=== PATIENT | male | born 1970 | race Caucasian/White ===

== ENCOUNTER 2020-08-11 14:38 | Outpatient (REF) | payer OTHER, SELFPAY ==
--- NOTE | 2020-08-11 15:06 | XR_ITS ---
EXAMINATION: XR CHEST 2 VIEWS CLINICAL INFORMATION: Fatigue and weight loss. COMPARISON: None. TECHNIQUE: Frontal and lateral views of the chest were obtained. FINDINGS: The heart, great vessels, pulmonary vasculature and mediastinum are normal. The lungs show no focal infiltrate, effusion or pneumothorax. There is mild hyperinflation. There is mild biapical pleural thickening. There is no acute osseous abnormality. XR/XR chest 2V IMPRESSION: No active cardiopulmonary disease. There is mild hyperinflation.
[2020-08-11 15:13] LABS: MANUAL DIFF FLAG NO
[2020-08-11 15:16] LABS: Basophils Percent Auto 0.4 % (0-2); Eosinophils Absolute Auto 0.1 X10*3/uL (0.0-0.4); Eosinophils Percent Auto 1.2 % (0-4); Hematocrit 45.3 % (42-52); Hemoglobin 15.4 g/dl (14.0-18.0); Imm Gran Abs Auto 0.02 X10*3/uL (0.00-0.03); Imm Gran Pct Auto 0.3 % (0.0-0.4); Lymphocytes Absolute Auto 1.5 X10*3/uL (1.2-4.9); Lymphocytes Percent Auto 22.6 % (20-40); Mean Corpuscular Hemoglobin 32.2 pg (27.0-33.0); Mean Corpuscular Volume 94.6 fL (80-98); Mean Platelet Volume 8.6 fL (9.4-12.4); Monocytes Absolute Auto 0.8 X10*3/uL (0.1-1.2); Monocytes Percent Auto 11.3 % (2-11); Neutrophils Absolute Auto 4.4 X10*3/uL (2.0-8.3); Neutrophils Percent Auto 64.2 % (45-73); Platelet Count 306 X10*3/uL (160-400); Red Blood Count 4.79 X10*6/uL (4.60-5.80); Red Cell Distribution Width 12.5 % (11.0-16.0); White Blood Count 6.8 X10*3/uL (4.8-10.8)
[2020-08-11 15:40] LABS: Alanine Aminotransferase 20 U/L (0-40); Albumin Level 4.4 g/dL (3.5-5.0); Alkaline Phosphatase 63 U/L (39-117); Anion Gap 13 (12-20); Aspartate Amino Transferase 14 U/L (5-37); Bilirubin Total 0.5 mg/dL (0.0-1.0); Blood Urea Nitrogen 11 mg/dL (9-16); C Reactive Protein 0.04 mg/dL (< or = 0.50); Calcium 9.1 mg/dL (8.4-10.2); Carbon Dioxide 27 mmol/L (22-29); Chloride 103 mmol/L (96-108); Estimated Glomerular Filt Rate > 60; Glucose Random 77 mg/dL (60-115); Potassium 5.1 mmol/l (3.3-5.1); Sodium 138 mmol/L (135-145); Total Protein 6.6 g/dL (6.5-8.0)
[2020-08-11 16:01] LABS: Thyroid Stimulating Hormone 1.69 mIU/mL (0.32-4.0)
[2020-08-11 16:51] LABS: Folate 15.8 ng/mL (> or = 4.0); Vitamin B12 480 pg/mL (200-900)
== END 2020-08-11 14:39 | disposition home or self-care (01) ==
LOC: HO.LAB 14:38
PROVIDERS: PCP Internal Medicine; Visit Provider Internal Medicine
DX: R53.83 Other fatigue (principal); F41.9 Anxiety disorder, unspecified; R63.4 Abnormal weight loss
CPT/HCPCS: 36415; 71046; 80053; 82607; 82746; 84439; 84443; 85025; 86140; 86481

== ENCOUNTER 2021-02-21 12:36 | Outpatient (REF) | payer SELFPAY ==
[2021-02-21 13:54] LABS: MANUAL DIFF FLAG NO
[2021-02-21 14:08] LABS: Basophils Percent Auto 0.3 % (0-2); Eosinophils Absolute Auto 0.1 X10*3/uL (0.0-0.4); Eosinophils Percent Auto 1.4 % (0-4); Hematocrit 43.2 % (42-52); Hemoglobin 14.5 g/dl (14.0-18.0); Imm Gran Abs Auto 0.02 X10*3/uL (0.00-0.03); Imm Gran Pct Auto 0.3 % (0.0-0.4); Lymphocytes Absolute Auto 1.8 X10*3/uL (1.2-4.9); Lymphocytes Percent Auto 25.5 % (20-40); Mean Corpuscular HGB Conc 33.6 g/dl (31.0-36.0); Mean Corpuscular Hemoglobin 31.3 pg (27.0-33.0); Mean Corpuscular Volume 93.3 fL (80-98); Mean Platelet Volume 8.9 fL (9.4-12.4); Monocytes Absolute Auto 0.8 X10*3/uL (0.1-1.2); Neutrophils Absolute Auto 4.3 X10*3/uL (2.0-8.3); Neutrophils Percent Auto 61.5 % (45-73); Platelet Count 348 X10*3/uL (160-400); Red Blood Count 4.63 X10*6/uL (4.60-5.80); Red Cell Distribution Width 12.7 % (11.0-16.0)
[2021-02-21 14:27] LABS: Alanine Aminotransferase 38 U/L (0-40); Albumin Level 4.6 g/dL (3.5-5.0); Alkaline Phosphatase 93 U/L (39-117); Anion Gap 14 (12-20); Aspartate Amino Transferase 27 U/L (5-37); Blood Urea Nitrogen 12 mg/dL (9-16); Calcium 9.5 mg/dL (8.4-10.2); Carbon Dioxide 23 mmol/L (22-29); Chloride 105 mmol/L (96-108); Cholesterol 157 mg/dL; Estimated Glomerular Filt Rate > 60; Glucose Fasting 102 mg/dL (60-99); HDL Cholesterol 73 mg/dL; LDL Cholesterol Calculated 75 mg/dl; Potassium 4.2 mmol/L (3.3-5.1); Sodium 138 mmol/L (135-145); Total Protein 6.9 g/dL (6.5-8.0); Triglycerides 47 mg/dL
[2021-02-21 14:50] LABS: Prostate Specific Antigen Scr 0.45 ng/mL (<0.05-4.0)
[2021-02-22 05:12] LABS: Lyme Abs Screen <0.90 index
== END 2021-02-21 12:37 | disposition home or self-care (01) ==
LOC: HO.10HDL 12:36
PROVIDERS: Visit Provider Internal Medicine
DX: Z00.00 Encounter for general adult medical examination without abnormal findings (principal); Z12.5 Encounter for screening for malignant neoplasm of prostate; Z20.818 Contact with and (suspected) exposure to other bacterial communicable diseases
CPT/HCPCS: 36415; 80053; 80061; 84153; 85025; 86617; 86618

== ENCOUNTER 2023-04-11 15:09 | Inpatient (IN) | payer BC, SELFPAY ==
--- NOTE | ~2023-04-11 | XR_ITS ---
EXAMINATION: XR TIBIA AND FIBULA, LEFT CLINICAL INFORMATION: Foreign body in the leg. COMPARISON: None available. TECHNIQUE: AP and lateral views of the left tibia and fibula were obtained. FINDINGS: No radiopaque foreign body. The bones and soft tissues are normal. No fracture. No osseous lesions. XR/XR tibia fibula LT 2V IMPRESSION: Normal left tibia and fibula.
[2023-04-11 15:38] VITALS: BP 154/80; PULSE 77; RESP 18; TEMP 36.7; O2SAT 98; BMI 23.4
--- NOTE | 2023-04-11 15:42 | ED.GENADULT ---
HPI - General Adult General Chief complaint: General Medical Stated complaint: Abscess on L leg Time Seen by Provider: 04/11/23 20:39 Source: patient Mode of arrival: ambulatory Limitations: no limitations History of Present Illness HPI narrative: 52-year-old male presents with redness, swelling, puncture wound to left lower extremity, he reports that about a week ago he got a large sliver/piece of wood into his left lower extremity causing a puncture wound, he reports most of the piece avoid is out however he still feels as though there is a piece of wood inside. He has been having pain, swelling, and yllow discharge from puncture site. Patient reports he took azithromycin for this infection about 3 days ago, despite antibiotics as been getting worse. Reports he saw his PCP who advised him to come into the emergency department for further evaluation treatment possible hospital admission. Patient denies numbness, tingling, fevers, chills, chest pain, shortness of breath, headache, vision changes, dizziness and weakness Related Data Allergies Allergy/AdvReac Type Severity Reaction Status Date / Time No Known Allergies Allergy Verified 04/11/23 15:47 Review of Systems Review of Systems: Constitutional : No Weight loss, No Fever, No Chills, No Fatigue, No Malaise ENT/Mouth : No sore throat, No Rhinorrhea Eyes: No Eye Pain, No Swelling, No Redness Cardiovascular : No Chest Pain, No SOB, No Dyspnea on Exertion, No Orthopnea, No Edema, No Palpitations Respiratory : No Cough, No Sputum, No Wheezing Gastrointestinal : No Nausea, No Vomiting, No Diarrhea, No Constipation, No abdominal Pain, No Hematochezia, No Melena Genitourinary : No Dysuria, No Urinary Frequency, No Hematuria, Musculoskeletal : No joint pain, No Myalgias, No Joint Swelling Skin : No Skin Lesions, + rash Neuro : No Weakness, No Numbness, No Dizziness, No Headache Psych : No Anxiety/Panic, No Depression All other systems reviewed and are negative Yes all other systems are reviewed and are negative [facility] Past Medical History Attestation statement: The following information was validated with the patient. Source: old records reviewed and nursing notes reviewed Social History Social History Advance Directives: No Advance Directives Information Provided: Yes Physical Exam ED Vital Signs: Vital Signs - 24 hr 04/11/23 15:38 04/11/23 20:47 Temperature 98.1 F 98.6 F Pulse Rate 77 58 Respiratory Rate 18 18 Blood Pressure 154/80 H 152/96 H Pulse Oximetry 98 100 Oxygen Delivery Method Room Air Room Air BMI result Body Mass Index 23.4 Vital signs stable Appearance: Alert.? Oriented X3.? No acute distress.? Head: Normocephalic, atraumatic, no step-offs or deformities Eyes: Pupils equal, round and reactive to light.? CVS: Normal heart rate and rhythm.? Pulses normal.? Respiratory: No respiratory distress.? Breath sounds normal.? Abdomen: Soft and nontender.? Skin: Skin warm and dry.? Normal skin color.? Normal skin turgor.? Extremities: No lower extremity edema.? No calf ttp. 5/5 strength to bilateral upper and lower extremities + cellulitis to LLE w/ small puncture wound and surrounding induration ( images below) 2+ DP, AT,PT equal and b/l. No foot drop Neuro: Oriented X 3.? No motor deficit.? No sensory deficit. CN 2-12 intact Course Course Course Narrative: RME performed by Sarai Rodas PA-C. Patient is a 52 year old assigned male at presenting to the emergency department with left lower leg cellulitis secondary from a splinter. Patient was on PO antibiotics however, the infection has gotten worse. Believes there to be remaining splinter fragments. Labs ordered. Spoke with the orthopedic provider care connector who stated that orthopedics does not need to get involved as it does not primarily involved the left ankle joint. Patient placed back in the waiting room pending room availability and results. Reevaluation(s) Reevaluation #1: CBC appears to be within normal limits. Chemistry unremarkable no acute findings. CRP elevated markedly likely secondary to acute infection. I do not suspect osteomyelitis. X-ray unremarkable. At this time patient to be admitted to the hospitalist team for cellulitis, failed p.o. antibiotics, will likely require evaluation by the surgical team for possible washout. Time: 22:29 Medical Decision Making Medical Decision Making [facility] Narrative: [id number] 52-year-old male presents with left lower extremity cellulitis for the past 4-5 days worsening, was on a Z-Jun 3 days ago. Physical exam with left lower extremity cellulitis. Images and physical exam portion of sharp. Concerns for cellulitis question lymphangitis spread also concerned for developing abscess. Unlikely osteomyelitis, necrotizing infection, SJS, TEN . Unlikely arterial or venous occlusion no signs of septic joint. Plan- labs, cultures, lactic. Imaging Differential Diagnosis Differential Diagnoses: The differential diagnosis associated with the presentation includes Concerns for cellulitis question lymphangitis spread also concerned for developing abscess. Unlikely osteomyelitis, necrotizing infection, SJS, TEN . Unlikely arterial or venous occlusion no signs of septic joint. . Admission/Observation Consideration of admission/observation: Escalation of care including admission/observation considered Patient will likely be hospital admission already feels p.o. antibiotic therapy Lab Data MDM Lab Attestation statement: I reviewed the patient's lab results. 04/11/23 16:04 04/11/23 16:04 Labs: Lab Results 04/11/23 04/11/23 04/11/23 Range/Units 16:04 16:04 16:04 WBC 7.9 (4.8-10.8) X10*3/uL RBC 4.63 (4.60-5.80) X10*6/uL Hgb 14.6 (14.0-18.0) g/dl Hct 43.1 (42.0-52.0) % MCV 93.1 (80.0-98.0) fL MCH 31.5 (27.0-33.0) pg MCHC 33.9 (31.0-36.0) g/dl RDW 12.5 (11.0-16.0) % Plt Count 314 (160-400) X10*3/uL MPV 8.7 L (9.4-12.4) fL Immature Gran % (Auto) 0.3 (0.0-0.4) % Neut % (Auto) 70.8 (45-73) % Lymph % (Auto) 18.7 L (20-40) % [place] % (Auto) 9.0 (2-11) % Eos % (Auto) 0.9 (0-4) % Baso % (Auto) 0.3 (0-2) % Lymph # (Auto) 1.5 (1.2-4.9) X10*3/uL [place] # (Auto) 0.7 (0.1-1.2) X10*3/uL Eos # (Auto) 0.1 (0.0-0.4) X10*3/uL Baso # (Auto) 0.0 (0.0-0.2) X10*3/uL Abs Immat Gran (auto) 0.02 (0.00-0.03) X10*3/uL Absolute Neuts (auto) 5.6 (2.0-8.3) x10*3/uL Absolute Nucleated RBC 0.000 (0.0-0.012) X10*3/uL Nucleated RBC % (auto) 0.0 (0.0-0.2) /100WBC ESR 17 H (0-15) MM/HR Sodium 140 (135-145) mmol/L Potassium 4.1 (3.3-5.1) mmol/L Chloride 102 (96-108) mmol/L Carbon Dioxide 25 (22-29) mmol/L Anion Gap TNP BUN 10 (9-16) mg/dL Creatinine 0.74 (0.5-1.4) mg/dL Estim Creat Clear Calc 122.9 Estimated GFR > 60 Random Glucose 82 (60-115) mg/dL Lactic Acid (0.5-2.0) mmol/L Calcium 9.7 (8.4-10.2) mg/dL Magnesium 2.2 (1.6-2.6) mg/dL Total Bilirubin 1.0 (0.0-1.0) mg/dL AST 29 (5-37) U/L ALT 42 H (0-40) U/L Alkaline Phosphatase 63 (39-117) U/L C-Reactive Protein 5.55 H (< or = 0.50) mg/dL Total Protein 7.6 (6.5-8.0) g/dL Albumin 4.7 (3.5-5.0) g/dL 04/11/23 Range/Units 16:04 WBC (4.8-10.8) X10*3/uL RBC (4.60-5.80) X10*6/uL Hgb (14.0-18.0) g/dl Hct (42.0-52.0) % MCV (80.0-98.0) fL MCH (27.0-33.0) pg MCHC (31.0-36.0) g/dl RDW (11.0-16.0) % Plt Count (160-400) X10*3/uL MPV (9.4-12.4) fL Immature Gran % (Auto) (0.0-0.4) % Neut % (Auto) (45-73) % Lymph % (Auto) (20-40) % [place] % (Auto) (2-11) % Eos % (Auto) (0-4) % Baso % (Auto) (0-2) % Lymph # (Auto) (1.2-4.9) X10*3/uL [place] # (Auto) (0.1-1.2) X10*3/uL Eos # (Auto) (0.0-0.4) X10*3/uL Baso # (Auto) (0.0-0.2) X10*3/uL Abs Immat Gran (auto) (0.00-0.03) X10*3/uL Absolute Neuts (auto) (2.0-8.3) x10*3/uL Absolute Nucleated RBC (0.0-0.012) X10*3/uL Nucleated RBC % (auto) (0.0-0.2) /100WBC ESR (0-15) MM/HR Sodium (135-145) mmol/L Potassium (3.3-5.1) mmol/L Chloride (96-108) mmol/L Carbon Dioxide (22-29) mmol/L Anion Gap BUN (9-16) mg/dL Creatinine (0.5-1.4) mg/dL Estim Creat Clear Calc Estimated GFR Random Glucose (60-115) mg/dL Lactic Acid 1.6 (0.5-2.0) mmol/L Calcium (8.4-10.2) mg/dL Magnesium (1.6-2.6) mg/dL Total Bilirubin (0.0-1.0) mg/dL AST (5-37) U/L ALT (0-40) U/L Alkaline Phosphatase (39-117) U/L C-Reactive Protein (< or = 0.50) mg/dL Total Protein (6.5-8.0) g/dL Albumin (3.5-5.0) g/dL Independent Interpretation I performed an independent interpretation of an: Plain X-Ray Core Measures AMI core measures followed: Yes Measure exclusions: not indicated Critical Care Time Critical Care Time Critical Care Time: No Discharge Plan Discharge Clinical Impression: Cellulitis, Retained foreign body, Puncture wound Patient Disposition: Admitted As Inpatient
[2023-04-11 16:09] LABS: MANUAL DIFF FLAG NO
[2023-04-11 16:12] LABS: Basophils Percent Auto 0.3 % (0-2); Eosinophils Absolute Auto 0.1 X10*3/uL (0.0-0.4); Eosinophils Percent Auto 0.9 % (0-4); Hematocrit 43.1 % (42.0-52.0); Hemoglobin 14.6 g/dl (14.0-18.0); Imm Gran Abs Auto 0.02 X10*3/uL (0.00-0.03); Imm Gran Pct Auto 0.3 % (0.0-0.4); Lymphocytes Absolute Auto 1.5 X10*3/uL (1.2-4.9); Lymphocytes Percent Auto 18.7 % (20-40); Mean Corpuscular HGB Conc 33.9 g/dl (31.0-36.0); Mean Corpuscular Hemoglobin 31.5 pg (27.0-33.0); Mean Corpuscular Volume 93.1 fL (80.0-98.0); Mean Platelet Volume 8.7 fL (9.4-12.4); Monocytes Absolute Auto 0.7 X10*3/uL (0.1-1.2); Neutrophils Absolute Auto 5.6 x10*3/uL (2.0-8.3); Neutrophils Percent Auto 70.8 % (45-73); Platelet Count 314 X10*3/uL (160-400); Red Blood Count 4.63 X10*6/uL (4.60-5.80); Red Cell Distribution Width 12.5 % (11.0-16.0); White Blood Count 7.9 X10*3/uL (4.8-10.8)
[2023-04-11 16:29] LABS: Lactic Acid 1.6 mmol/L (0.5-2.0)
[2023-04-11 16:49] LABS: Erythrocyte Sedimentation Rate 17 MM/HR (0-15)
[2023-04-11 17:44] LABS: Alanine Aminotransferase 42 U/L (0-40); Albumin Level 4.7 g/dL (3.5-5.0); Alkaline Phosphatase 63 U/L (39-117); Aspartate Amino Transferase 29 U/L (5-37); Blood Urea Nitrogen 10 mg/dL (9-16); C Reactive Protein 5.55 mg/dL (< or = 0.50); Calcium 9.7 mg/dL (8.4-10.2); Chloride 102 mmol/L (96-108); Creatinine Clr Calc Pharmacy 122.9; Estimated Glomerular Filt Rate > 60; Glucose Random 82 mg/dL (60-115); Magnesium 2.2 mg/dL (1.6-2.6); Potassium 4.1 mmol/L (3.3-5.1); Sodium 140 mmol/L (135-145); Total Protein 7.6 g/dL (6.5-8.0)
--- NOTE | 2023-04-11 20:39 | PC.NURSE ---
puncture wound to inner LLE, sustained friday. was able to remove wood fragments from site but wound now draining serosanguinous fluid/erythema/edema. presents for treatment of infection.
[2023-04-11 20:47] VITALS: BP 152/96; PULSE 58; RESP 18; TEMP 37; O2SAT 100
[2023-04-11 21:54] LABS: Carbon Dioxide 25 mmol/L (22-29)
--- NOTE | 2023-04-11 22:34 | PM.IMHP ---
History of Present Illness Date of Service: 04/11/23 Chief Complaint: Extremity redness, warmth This is a 52-year-old male with no pertinent past medical history and not on prescription medications who presents to the emergency evaluation of left lower extremity swelling, tenderness, warmth and redness. Patient states that about 5 days prior to presentation, he got a large piece of wood into his left lower extremity causing a puncture wound. Since then his leg has been swollen, red and warm. He has had pain over the left lower extremity due to the same. Patient tried Z-Jun at home without any relief. No fever, chills, nausea, vomiting, chest discomfort, palpitations, shortness of breath, abdominal pain, changes in urinary or bowel habits. Patient saw his PCP sent him to the ER for inpatient admission and IV antibiotics. Does endorse purulent serosanguineous drainage from the puncture wound Review of Systems Constitutional: Constitutional: Reports no additional constitutional complaints Cardiovascular: Cardiovascular: Reports no additional cardiovascular complaints Respiratory: Respiratory: Reports no additional respiratory complaints Gastrointestinal: Gastrointestinal: Reports no additional gastrointestinal complaints Genitourinary: Genitourinary: Reports no additional male genitourinary complaints [facility] Pertinent family history: No family history of early CAD Social History Advance Directives: No Advance Directives Information Provided: Yes Meds Allergies Allergy/AdvReac Type Severity Reaction Status Date / Time No Known Allergies Allergy Verified 04/11/23 15:47 Physical Exam Vital Signs and Narrative: Vital Signs: Last Vital Signs Temp 98.6 F 04/11/23 20:47 Pulse 58 04/11/23 20:47 Resp 18 04/11/23 20:47 BP 152/96 H 04/11/23 20:47 Pulse Ox 100 04/11/23 20:47 O2 Del Method Room Air 04/11/23 20:47 BMI result Body Mass Index 23.4 Middle-aged male lying in bed in no distress Neck supple, no JVD Regular rate and rhythm, S1-S2 heard Regular breath sounds bilaterally, no wheezing or crackles appreciated Abdomen soft nontender, no guarding, no rigidity Patient is awake, alert and oriented to self, place, time and person ; no focal motor deficit Musculoskeletal: Left lower extremity with erythema, warmth and tenderness ; puncture wound seen with serosanguineous drainage, Psych: Normal mood No pedal edema Results Labs 04/11/23 16:04 04/11/23 16:04 Labs: Laboratory Results - last 24 hr 04/11/23 04/11/23 04/11/23 16:04 16:04 16:04 MCV 93.1 MCH 31.5 MCHC 33.9 RDW 12.5 Plt Count 314 MPV 8.7 L Immature Gran % (Auto) 0.3 Neut % (Auto) 70.8 Lymph % (Auto) 18.7 L [place] % (Auto) 9.0 Eos % (Auto) 0.9 Baso % (Auto) 0.3 Lymph # (Auto) 1.5 [place] # (Auto) 0.7 Eos # (Auto) 0.1 Baso # (Auto) 0.0 Abs Immat Gran (auto) 0.02 Absolute Neuts (auto) 5.6 Absolute Nucleated RBC 0.000 Nucleated RBC % (auto) 0.0 ESR 17 H Anion Gap TNP Estim Creat Clear Calc 122.9 Estimated GFR > 60 Random Glucose 82 Lactic Acid Calcium 9.7 Magnesium 2.2 Total Bilirubin 1.0 AST 29 ALT 42 H Alkaline Phosphatase 63 C-Reactive Protein 5.55 H Total Protein 7.6 Albumin 4.7 04/11/23 16:04 MCV MCH MCHC RDW Plt Count MPV Immature Gran % (Auto) Neut % (Auto) Lymph % (Auto) [place] % (Auto) Eos % (Auto) Baso % (Auto) Lymph # (Auto) [place] # (Auto) Eos # (Auto) Baso # (Auto) Abs Immat Gran (auto) Absolute Neuts (auto) Absolute Nucleated RBC Nucleated RBC % (auto) ESR Anion Gap Estim Creat Clear Calc Estimated GFR Random Glucose Lactic Acid 1.6 Calcium Magnesium Total Bilirubin AST ALT Alkaline Phosphatase C-Reactive Protein Total Protein Albumin Imaging Radiologist's Impressions: Impressions Tibia/Fibula X-Ray 04/11/23 22:14 IMPRESSION: Normal left tibia and fibula. Assessment and Plan (1) Cellulitis: Status: Acute Plan This is a 52-year-old male with no pertinent past medical history and not on prescription medications who presents to the emergency evaluation of left lower extremity swelling, tenderness, warmth and redness. #. Left lower extremity purulent cellulitis: Due to trauma. Failed p.o. outpatient antibiotics. Will admit patient with IV antibiotics. Monitor for improvement DVT prophylaxis: Lovenox Full code Regular diet Admit as inpatient and will require two night minimum hospital stay for IV antibiotics Time Spent With Patient Time: Total time managing care of this patient today ____ minutes. Quality Stroke Does the patient have a stroke diagnosis?: No VTE Prior VTE?: No VTE Risk Level:: Medical - moderate - high VTE Device Contraindication: Treatment Not Indicated VTE Drug Contraindication: N/A - Med Ordered
[2023-04-11] MEDS: Piperacillin Sodium/Tazobactam 3.375 GM in 0.9 % Sodium Chloride 50 ML IV (22:54)
[2023-04-11] MEDS: vancomycin/NS 2,000 MG/500 ML PLAST..BAG 250 MG IV (23:47)
[2023-04-12 00:20] VITALS: BP 146/77; PULSE 72; RESP 18; TEMP 36.8; O2SAT 98
[2023-04-12] MEDS: Acetaminophen 325 MG TABLET 650 MG PO ×3 (00:28→17:18)
[2023-04-12] MEDS: Melatonin 3 MG TABLET 6 MG PO ×2 (00:28→23:00)
--- NOTE | 2023-04-12 00:48 | PC.NURSE ---
Pt arrived on ED OF AT 0000. Has IV in right hand with vanco running at 250 mL/hr. Pt left leg swollen and at puncture site it's warm and hard. Pt stated pain when standing and was given prn Tylenol 650mg PO for 4/10 pain and Melatonin 6 mg PO. Pt was squeezing punctured area, stated that it feels like there's something still there. Yellow discharge was noticed coming from punctured site. Pt is resting in bed, will continue to monitor.
[2023-04-12 04:57] LABS: MANUAL DIFF FLAG NO
[2023-04-12 04:58] LABS: Basophils Percent Auto 0.4 % (0-2); Eosinophils Absolute Auto 0.2 X10*3/uL (0.0-0.4); Eosinophils Percent Auto 3.3 % (0-4); Hematocrit 40.2 % (42.0-52.0); Hemoglobin 13.5 g/dl (14.0-18.0); Imm Gran Abs Auto 0.01 X10*3/uL (0.00-0.03); Imm Gran Pct Auto 0.2 % (0.0-0.4); Lymphocytes Absolute Auto 1.6 X10*3/uL (1.2-4.9); Lymphocytes Percent Auto 27.1 % (20-40); Mean Corpuscular HGB Conc 33.6 g/dl (31.0-36.0); Mean Corpuscular Hemoglobin 30.9 pg (27.0-33.0); Mean Platelet Volume 8.6 fL (9.4-12.4); Monocytes Absolute Auto 0.8 X10*3/uL (0.1-1.2); Monocytes Percent Auto 13.1 % (2-11); Neutrophils Absolute Auto 3.2 x10*3/uL (2.0-8.3); Neutrophils Percent Auto 55.9 % (45-73); Platelet Count 261 X10*3/uL (160-400); Red Blood Count 4.37 X10*6/uL (4.60-5.80); Red Cell Distribution Width 12.4 % (11.0-16.0); White Blood Count 5.7 X10*3/uL (4.8-10.8)
[2023-04-12 05:13] LABS: Anion Gap 11 (12-20); Blood Urea Nitrogen 13 mg/dL (9-16); Carbon Dioxide 23 mmol/L (22-29); Chloride 108 mmol/L (96-108); Creatinine Clr Calc Pharmacy 124.6; Estimated Glomerular Filt Rate > 60; Glucose Random 110 mg/dL (60-115); Potassium 3.9 mmol/L (3.3-5.1); Sodium 138 mmol/L (135-145)
[2023-04-12] MEDS: 0.9 % Sodium Chloride Flush 3 ML SYRINGE IVFLUSH ×3 (07:13→19:50)
[2023-04-12 07:25] VITALS: BP 127/74; PULSE 60; RESP 18; TEMP 36.7; O2SAT 97
--- NOTE | 2023-04-12 08:01 | PHA.PROG ---
Admission Date/Time: April 11, 2023 22:32 Indication: Skin Weight in k.204 kg Adjusted body weight in Kg: [place] body weight in Kg: Obesity Dosing Indication % IBW: Serum Creatinine - Last 168 Hours 04/11/23 04/12/23 16:04 04:40 Creatinine 0.74 0.73 Estimated CrCl and GFR - Last 168 Hours 04/11/23 04/12/23 16:04 04:40 Estim Creat Clear Calc 122.9 124.6 Estimated GFR > 60 > 60 Vancomycin Loading Dose: 2000mg x 1 Current Vancomycin Dosing Regimen: 1000mg Q12H Vancomycin Monitoring using AUC goal of 400 - 600 range with trough as surrogate marker: 428mg/L Date and Time for next Vancomycin Level to be drawn: 04/13/23 @0900 Pharmacist Comments on Vancomycin Plan: predicted trough of 12.6mg/L Vancomycin dosing will take advantage of medineering as a clinical decision support tool that uses Bayesian modeling to calculate individual patient's pharmacokinetic parameters and forecast the patient's drug concentration time course with the target goal AUC 24 range of 400 - 600 mg/L/hr.
--- NOTE | 2023-04-12 08:45 | PHA.MEDREC ---
Pharmacy Consult ? Medication Reconciliation Pharmacy has completed the medication reconciliation. spoke with patient. He reports taking ibuprofen and tylenol before coming here but does not use those regularly.
[2023-04-12] MEDS: vancomycin HCL 1,000 MG in 0.9 % Sodium Chloride 250 ML 270 MG IV ×2 (11:09→22:47)
[2023-04-12 15:10] VITALS: BP 136/71; PULSE 68; RESP 18; TEMP 36.6; O2SAT 98
--- NOTE | 2023-04-12 15:12 | P.PNIM_ITS ---
Subjective Subjective Date of Service: 04/12/23 Physical Exam Vital Signs: Vital Signs: Last Vital Signs Temp 98.1 F 04/12/23 07:25 Pulse 60 04/12/23 07:25 Resp 18 04/12/23 07:25 BP 127/74 04/12/23 07:25 Pulse Ox 97 04/12/23 07:25 O2 Del Method Room Air 04/12/23 07:25 BMI result Body Mass Index 23.4 Objective Data Active Medications Acetaminophen (Acetaminophen 325 Mg Tablet) 650 mg PO Q6H PRN PRN Reason: Pain, Mild (Pain Scale 1-3) Last Admin: 04/12/23 11:16 Dose: 650 mg Documented By: ANNIE Enoxaparin Sodium (Enoxaparin Sodium 40 Mg/0.4 Ml Syringe) 40 mg SUBCUT Q24H [facility] Last Admin: 04/12/23 07:06 Dose: Not Given Documented By: ANNIE Non-Admin Reason: Off Unit ED Vancomycin HCl 1,000 mg/ (Sodium Chloride) 270 mls @ 270 mls/hr IV Q12H [facility] Last Infusion: 04/12/23 12:52 Dose: 0 mls/hr Documented By: ANNIE Melatonin (Melatonin 3 Mg Tablet) 6 mg PO BEDTIME PRN PRN Reason: Insomnia Last Admin: 04/12/23 00:28 Dose: 6 mg Documented By: MARIYA Ondansetron HCl (Ondansetron Hcl 4 Mg/2 Ml Vial) 4 mg IVPUSH Q8H PRN PRN Reason: Nausea and Vomiting Pharmacy Consult (Consult Rx Vancomycin Dosing) 1 each MISCELLANE DAILY PRN PRN Reason: Consult order Sodium Chloride (0.9 % Sodium Chloride Flush 3 Ml Syringe) 3 ml IVFLUSH QSHIFT [facility] Last Admin: 04/12/23 07:13 Dose: 3 ml Documented By: ANNIE Labs 04/12/23 04:40 04/12/23 04:40 Labs: Laboratory Results - last 24 hr 04/11/23 04/11/23 04/11/23 16:04 16:04 16:04 MCV 93.1 MCH 31.5 MCHC 33.9 RDW 12.5 Plt Count 314 MPV 8.7 L Immature Gran % (Auto) 0.3 Neut % (Auto) 70.8 Lymph % (Auto) 18.7 L [place] % (Auto) 9.0 Eos % (Auto) 0.9 Baso % (Auto) 0.3 Lymph # (Auto) 1.5 [place] # (Auto) 0.7 Eos # (Auto) 0.1 Baso # (Auto) 0.0 Abs Immat Gran (auto) 0.02 Absolute Neuts (auto) 5.6 Absolute Nucleated RBC 0.000 Nucleated RBC % (auto) 0.0 ESR 17 H Anion Gap TNP Estim Creat Clear Calc 122.9 Estimated GFR > 60 Random Glucose 82 Lactic Acid Calcium 9.7 Magnesium 2.2 Total Bilirubin 1.0 AST 29 ALT 42 H Alkaline Phosphatase 63 C-Reactive Protein 5.55 H Total Protein 7.6 Albumin 4.7 04/11/23 04/12/23 04/12/23 16:04 04:40 04:40 MCV 92.0 MCH 30.9 MCHC 33.6 RDW 12.4 Plt Count 261 MPV 8.6 L Immature Gran % (Auto) 0.2 Neut % (Auto) 55.9 Lymph % (Auto) 27.1 [place] % (Auto) 13.1 H Eos % (Auto) 3.3 Baso % (Auto) 0.4 Lymph # (Auto) 1.6 [place] # (Auto) 0.8 Eos # (Auto) 0.2 Baso # (Auto) 0.0 Abs Immat Gran (auto) 0.01 Absolute Neuts (auto) 3.2 Absolute Nucleated RBC 0.000 Nucleated RBC % (auto) 0.0 ESR Anion Gap 11 L Estim Creat Clear Calc 124.6 Estimated GFR > 60 Random Glucose 110 Lactic Acid 1.6 Calcium 9.0 D Magnesium Total Bilirubin AST ALT Alkaline Phosphatase C-Reactive Protein Total Protein Albumin Assessment and Plan (1) Cellulitis: Status: Acute Plan 52-year-old male with no pertinent past medical history and not on prescription medications who presents to the emergency evaluation of left lower extremity swelling, tenderness, warmth and redness. Left lower extremity purulent cellulitis Due to trauma.? Failed p.o. outpatient antibiotics.? IV antibiotics, vanco DVT prophylaxis:? Lovenox Full code Admit as inpatient and will require two night minimum hospital stay for IV antibiotics Time Spent With Patient Time: Total time managing care of this patient today ____ minutes. Quality Stroke Does the patient have a stroke diagnosis?: No VTE Prior VTE?: No VTE Risk Level:: Medical - moderate - high VTE Device Contraindication: Treatment Not Indicated VTE Drug Contraindication: N/A - Med Ordered
--- NOTE | 2023-04-12 15:55 | MHC.CM.PN ---
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
--- NOTE | 2023-04-12 16:27 | P.DS_ITS ---
DS: Providers Provider Date of Service: 04/12/23 Date of admission: 04/11/23 22:32 Primary care physician: Ricci Everett MD Consults: 04/12/23 16:14 Consult to General Surgery Routine Consulting Provider: [facility] [place] General Surgeons Reason for consultation: left calf puncture wound Has provider been notified: No DS: Diagnosis Discharge Diagnosis (1) Cellulitis: Status: Acute DS: Summary Hospital Course Hospital Course: 52-year-old man admit for a left lower extremity puncture wound. He had tried o utpatient oral antibiotics but failed. Admitted for IV antibiotics with good success. He was also seen and examined by general surgeon, x-ray of affected area did not show any retained matter or abscess. s/p I&D by general surgeon. He will be home with 6 more days of Augmentin and doxycycline. Keep wound area clean and dry and he should follow up with general surgery. Time Spent with Patient Time attestation: Total time managing care of this patient today ____ minutes. Discharge coordination time: Greater than 30 minutes Quality: Safe Use of Opioids Does Pt have an Active Cancer Diagnosis on the Problem List?: No Quality: Stroke Does the patient have a stroke diagnosis?: No Physical Exam Vital Signs: Vital Signs: Last Vital Signs Temp 97.9 F 04/12/23 15:10 Pulse 68 04/12/23 15:10 Resp 18 04/12/23 15:10 BP 136/71 04/12/23 15:10 Pulse Ox 98 04/12/23 15:10 O2 Del Method Room Air 04/12/23 15:10 BMI result Body Mass Index 23.4 Appearing in no acute distress head is normocephalic atraumatic eyes pupils are PERRLA sclera is anicteric mouth throat mucous membranes are intact and moist neck is supple no lymphadenopathy, no JVD noted lung sounds are clear to auscultation heart regular rate rhythm, clear S1, S2 positive bowel sounds, abdomen is soft, nontender neuro patient is alert x3, no focal deficits Left LE wound DS: Data Data Completed and Pending Labs on day of discharge: Laboratory Results - last 24 hr 04/11/23 04/11/23 04/11/23 16:04 16:04 16:04 WBC RBC Hgb Hct MCV MCH MCHC RDW Plt Count MPV Immature Gran % (Auto) Neut % (Auto) Lymph % (Auto) [place] % (Auto) Eos % (Auto) Baso % (Auto) Lymph # (Auto) [place] # (Auto) Eos # (Auto) Baso # (Auto) Abs Immat Gran (auto) Absolute Neuts (auto) Absolute Nucleated RBC Nucleated RBC % (auto) ESR 17 H Sodium 140 Potassium 4.1 Chloride 102 Carbon Dioxide 25 Anion Gap TNP BUN 10 Creatinine 0.74 Estim Creat Clear Calc 122.9 Estimated GFR > 60 Random Glucose 82 Lactic Acid 1.6 Calcium 9.7 Magnesium 2.2 Total Bilirubin 1.0 AST 29 ALT 42 H Alkaline Phosphatase 63 C-Reactive Protein 5.55 H Total Protein 7.6 Albumin 4.7 04/12/23 04/12/23 04:40 04:40 WBC 5.7 RBC 4.37 L Hgb 13.5 L Hct 40.2 L MCV 92.0 MCH 30.9 MCHC 33.6 RDW 12.4 Plt Count 261 MPV 8.6 L Immature Gran % (Auto) 0.2 Neut % (Auto) 55.9 Lymph % (Auto) 27.1 Beaufort % (Auto) 13.1 H Eos % (Auto) 3.3 Baso % (Auto) 0.4 Lymph # (Auto) 1.6 [place] # (Auto) 0.8 Eos # (Auto) 0.2 Baso # (Auto) 0.0 Abs Immat Gran (auto) 0.01 Absolute Neuts (auto) 3.2 Absolute Nucleated RBC 0.000 Nucleated RBC % (auto) 0.0 ESR Sodium 138 Potassium 3.9 Chloride 108 Carbon Dioxide 23 Anion Gap 11 L BUN 13 Creatinine 0.73 Estim Creat Clear Calc 124.6 Estimated GFR > 60 Random Glucose 110 Lactic Acid Calcium 9.0 D Magnesium Total Bilirubin AST ALT Alkaline Phosphatase C-Reactive Protein Total Protein Albumin Discharge Plan Discharge Anticipated Discharge Date/Time: 04/13/23 13:59 Patient Disposition: Home, Self-Care Discharge Diagnosis: Cellulitis Referrals: Ricci Everett MD [Primary Care Provider] - 1 Week Rafael Laird MD [Physician] - 1 Week Discharge Medications: New amoxicillin-pot clavulanate 875-125 mg tablet 1 tab PO BID Qty: 12 0RF doxycycline hyclate 100 mg tablet 100 mg PO BID Qty: 12 0RF Discharge Orders: Discharge Order (Routine); Ordered 04/13/23 Ordered By: Nicolasa Mario Diet: Advance to usual diet Activity on Discharge: As tolerated Stand Alone Forms: Patient Portal Discharge page Care Plan Goals: Keep wound area clean and dry Health Concerns: Cellulitis Plan of Treatment: Follow-up with primary care provider as needed Follow up with general surgeon in one week Take all medications as prescribed Assessment: See discharge summary
[2023-04-12 20:00] VITALS: BP 130/62; PULSE 65; RESP 18; TEMP 36.4; O2SAT 98
[2023-04-12] MEDS: Enoxaparin Sodium 40 MG/0.4 ML SYRINGE SUBCUT (22:58)
[2023-04-13 03:16] VITALS: BP 125/93; PULSE 66; RESP 18; TEMP 36.4; O2SAT 99
[2023-04-13 06:40] LABS: Creatinine Clr Calc Pharmacy 133.8; Estimated Glomerular Filt Rate > 60
[2023-04-13] MEDS: Acetaminophen 325 MG TABLET 650 MG PO ×2 (07:29→15:34)
[2023-04-13] MEDS: 0.9 % Sodium Chloride Flush 3 ML SYRINGE IVFLUSH (07:29)
[2023-04-13 08:00] VITALS: BP 142/78; PULSE 60; RESP 17; TEMP 36.5; O2SAT 97
[2023-04-13 08:52] LABS: Vancomycin Trough 5.7 mcg/mL (10.0-20.0)
--- NOTE | 2023-04-13 09:04 | HE.PHANOTE ---
RE: vanco Trough on 04/13 came back low at 5.7mg/L; increased dose to 1000mg Q8H with predicted trough of 11.4mg/L, AUC of 434mg/L. Next level to be drawn after 3 doses 04/14 @0900
[2023-04-13] MEDS: vancomycin HCL 1,000 MG in 0.9 % Sodium Chloride 250 ML 270 MG IV (11:05)
--- NOTE | 2023-04-13 14:38 | PM.CNGS ---
History of Present Illness Consult details Consult date: 04/13/23 Narrative: Patient is status post wood sliver involving left mid calf approximately week half ago. He attempted to remove this splinter and thinks that there may be residual splinter in the puncture site. Consult is for evaluation for possible wound exploration. Chart was reviewed patient evaluated [facility] Social History Social History service: No Meds Allergies Allergy/AdvReac Type Severity Reaction Status Date / Time No Known Allergies Allergy Verified 04/11/23 15:47 Active Medications: Current Medications Acetaminophen (Acetaminophen 325 Mg Tablet) 650 mg PO Q6H PRN PRN Reason: Pain, Mild (Pain Scale 1-3) Last Admin: 04/13/23 07:29 Dose: 650 mg Enoxaparin Sodium (Enoxaparin Sodium 40 Mg/0.4 Ml Syringe) 40 mg SUBCUT Q24H [facility] Last Admin: 04/12/23 22:58 Dose: 40 mg Vancomycin HCl 1,000 mg/ (Sodium Chloride) 270 mls @ 270 mls/hr IV Q8H [facility] Last Infusion: 04/13/23 12:10 Dose: Infused Melatonin (Melatonin 3 Mg Tablet) 6 mg PO BEDTIME PRN PRN Reason: Insomnia Last Admin: 04/12/23 23:00 Dose: 6 mg Ondansetron HCl (Ondansetron Hcl 4 Mg/2 Ml Vial) 4 mg IVPUSH Q8H PRN PRN Reason: Nausea and Vomiting Pharmacy Consult (Consult Rx Vancomycin Dosing) 1 each MISCELLANE DAILY PRN PRN Reason: Consult order Sodium Chloride (0.9 % Sodium Chloride Flush 3 Ml Syringe) 3 ml IVFLUSH QSHIFT [facility] Last Admin: 04/13/23 07:29 Dose: 3 ml Physical Exam Vital Signs: Vital Signs: Last Vital Signs Temp 97.7 F 04/13/23 08:00 Pulse 60 04/13/23 08:00 Resp 17 04/13/23 08:00 BP 142/78 H 04/13/23 08:00 Pulse Ox 97 04/13/23 08:00 O2 Del Method Room Air 04/13/23 08:00 BMI result Body Mass Index 23.4 Extrem: Other: Patient has approximately 2 cm left mid calf medial aspect puncture site with some surrounding cellulitis and with pressure some purulent drainage. Results Labs 04/12/23 04:40 04/13/23 06:00 Labs: Abnormal lab results 04/13/23 Range/Units 08:24 Vancomycin Trough 5.7 L (10.0-20.0) mcg/mL BMP 04/13/23 06:00 Creatinine 0.68 All other labs normal. Assessment and Plan (1) Cellulitis: Status: Acute (2) Puncture wound: Status: Acute Plan I discussed with the patient consideration for wound exploration at the bedside. This will be to drain the abscess and evaluate for possible retained foreign body. He agrees to this. Risks, benefits, alternatives of incision and drainage of left mid calf abscess reviewed the patient and included but not limited to bleeding, infection, recurrence, numbness, pain, scarring the patient was to proceed. Patient underwent 1% lidocaine and Betadine prep and uneventful incision and drainage of abscess. Pocket of pus was drained. Cultures were obtained. Exploration of the wound demonstrated no gross evidence of any retained foreign body/sliver. Packing was placed, dressing applied. Patient tolerated procedure well. A/P patient will follow-up with me in clinic for local wound care. He will be given a script for hospitalist for antibiotics and analgesics. Time Spent With Patient Time: Total time managing care of this patient today ____ minutes. Procedures Date of Service Date of Service: 04/13/23
[2023-04-13] MEDS: Lidocaine HCl 1 % 20 ML VIAL SUBCUT (15:25)
--- NOTE | 2023-04-13 16:28 | MHC.CM.PN ---
PT WILL DC HOME TODAY WITH NO SERVICES VIA SELF TRANSPORT
== END 2023-04-13 15:58 | disposition home or self-care (01) | DRG 383 ==
LOC: HO.ED 22:31 → HO.EDOVER 22:38 → HO.S3 04-12 05:42
PROVIDERS: Physician Assistant Medical; Admitting Provider Student in an Organized Health Care Education/Training Program; Emergency Provider Internal Medicine; PCP Internal Medicine; Visit Provider Nurse Practitioner Acute Care
DX: L02.416 Cutaneous abscess of left lower limb (principal); L03.116 Cellulitis of left lower limb
CPT/HCPCS: 36415; 73590; 80048; 80053; 80202; 82565; 83605; 83735; 85025; 85652; 86140; 87040; 87070; 87205; 99285; J1650; J2543; J3370

== ENCOUNTER → 2023-04-14 14:11 | Outpatient (BNVA) | payer BC, SELFPAY | PROVIDERS: PCP Internal Medicine; Visit Provider Surgery ==

== ENCOUNTER → 2023-04-15 14:05 | Outpatient (BNVA) | payer BC, SELFPAY | PROVIDERS: PCP Internal Medicine; Visit Provider Surgery ==

== ENCOUNTER → 2023-04-23 13:52 | Outpatient (BNVA) | payer BC, SELFPAY | PROVIDERS: PCP Internal Medicine; Visit Provider Surgery ==

== ENCOUNTER 2024-03-02 15:24 | Outpatient (REF) | payer BC, SELFPAY ==
--- NOTE | ~2024-03-02 | XR_ITS ---
EXAMINATION: XR CHEST CLINICAL INFORMATION: Cough COMPARISON: 08/11/2020 TECHNIQUE: 2 views of the chest were obtained. FINDINGS: The lungs are well expanded. 1.8 x 1.3 cm nodule is seen in the left lower lobe. No focal consolidation. Mild biapical pleural thickening. No pleural effusion No significant abnormality is noted involving the heart, mediastinum, bony thorax or soft tissues. XR/XR chest 2V IMPRESSION: 1. No pneumonia. 2. 1.8 cm nodule in the left lower lobe. Chest CT is recommended for further evaluation.
== END 2024-03-02 15:25 | disposition home or self-care (01) ==
LOC: HO.XRAY 15:24
PROVIDERS: PCP Internal Medicine; Visit Provider Internal Medicine
DX: R05.9 Cough, unspecified (principal)
CPT/HCPCS: 71046

== ENCOUNTER 2024-03-06 10:29 | Outpatient (REF) | payer BC, SELFPAY ==
[2024-03-06 10:41] LABS: MANUAL DIFF FLAG NO
[2024-03-06 10:57] LABS: Basophils Percent Auto 0.2 % (0-2); Eosinophils Absolute Auto 0.1 X10*3/uL (0.0-0.4); Eosinophils Percent Auto 1.1 % (0-4); Hematocrit 47.3 % (42.0-52.0); Hemoglobin 16.2 g/dl (14.0-18.0); Imm Gran Abs Auto 0.03 X10*3/uL (0.00-0.03); Imm Gran Pct Auto 0.3 % (0.0-0.4); Lymphocytes Absolute Auto 2.6 X10*3/uL (1.2-4.9); Lymphocytes Percent Auto 29.2 % (20-40); Mean Corpuscular HGB Conc 34.2 g/dl (31.0-36.0); Mean Corpuscular Volume 93.5 fL (80.0-98.0); Mean Platelet Volume 8.5 fL (9.4-12.4); Monocytes Absolute Auto 1.1 X10*3/uL (0.1-1.2); Monocytes Percent Auto 12.7 % (2-11); Neutrophils Absolute Auto 5.1 x10*3/uL (2.0-8.3); Neutrophils Percent Auto 56.5 % (45-73); Platelet Count 328 X10*3/uL (160-400); Red Blood Count 5.06 X10*6/uL (4.60-5.80); Red Cell Distribution Width 12.6 % (11.0-16.0)
[2024-03-06 11:45] LABS: Alanine Aminotransferase 41 U/L (0-40); Albumin Level 4.8 g/dL (3.5-5.0); Alkaline Phosphatase 67 U/L (39-117); Anion Gap 13 (12-20); Aspartate Amino Transferase 21 U/L (5-37); Bilirubin Total 0.5 mg/dL (0.0-1.0); Calcium 9.7 mg/dL (8.4-10.2); Carbon Dioxide 27 mmol/L (22-29); Chloride 103 mmol/L (96-108); Cholesterol 186 mg/dL (<200); Estimated Glomerular Filt Rate > 60; Glucose Fasting 98 mg/dL (60-99); HDL Cholesterol 73 mg/dL (>40); LDL Cholesterol Calculated 97 mg/dL (<100); Potassium 4.1 mmol/L (3.3-5.1); Sodium 139 mmol/L (135-145); Total Protein 7.6 g/dL (6.5-8.0); Triglycerides 84 mg/dL (<150)
[2024-03-06 11:58] LABS: Prostate Specific Antigen 0.57 ng/mL (<0.05-4.0)
[2024-03-06 12:01] LABS: Blood Urea Nitrogen 14 mg/dL (9-16)
[2024-03-09 06:39] LABS: Lyme Abs Screen <0.90 index
== END 2024-03-06 10:30 | disposition home or self-care (01) ==
LOC: HO.LAB 10:29
PROVIDERS: PCP Internal Medicine; Visit Provider Internal Medicine
DX: T14.8XXA Other injury of unspecified body region, initial encounter (principal); E78.00 Pure hypercholesterolemia, unspecified; Z12.5 Encounter for screening for malignant neoplasm of prostate; W57.XXXA Bitten or stung by nonvenomous insect and other nonvenomous arthropods, initial encounter
CPT/HCPCS: 36415; 80053; 80061; 84153; 85025; 86617; 86618

== ENCOUNTER 2024-04-08 09:33 | Outpatient (REF) | payer BC, SELFPAY | END 2024-04-08 09:34 | disposition home or self-care (01) | LOC: HO.SH 09:33 | PROVIDERS: Visit Provider Internal Medicine | DX: Z01.118 Encounter for examination of ears and hearing with other abnormal findings (principal); H90.71 Mixed conductive and sensorineural hearing loss, unilateral, right ear, with unrestricted hearing on the contralateral side | CPT/HCPCS: 92557; 92567 ==

== ENCOUNTER 2025-08-23 13:36 | Outpatient (AMB) | payer BC, SELFPAY ==
--- OUTSIDE RECORDS SUMMARY | 2024-04-27 08:00 | XMS_ITS ---
Author Organization Jeramy Palafox III, MD Address [address] [place] [address] Care Team Providers Care Telecommunications Repairer Name Role Phone Ricci Everett MD Primary Care Provider Dr. Jeramy Falcon III Unavailable [phone] Allergies Allergen (clinical drug ingredient) Drug/Non Drug Allergy documented on EMR Reaction Allergy Type Onset Date Status No Known Drug Allergy Unknown Drug Allergy Active REASON FOR VISIT 1.5 cm left lower lobe pulmonary nodule Medications Medication SIG (Take, Route, Frequency, Duration) Notes Start Date End Date Status Albuterol Sulfate HFA 108 (90 Base) MCG/ACT TAKE 2 PUFF(S) BY MOUTH FOUR TIMES A DAY NEEDED Inhalation for 30 Days Active Social History Tobacco Use: Social History Observation Description Date Details (start date - stop date) Never Smoker NA - NA Sex Assigned At : Social History Observation Description Sex Assigned At Male Tobacco Use/Smoking Question Answer Notes Patient is a nonsmoker Additional Findings: Tobacco Non-User Aggressive non-smoker Alcohol Screen Question Answer Notes Did you have a drink contain ing alcohol in the past year? Yes How often did you have a dri nk containing alcohol in the past year? 2 to 3 times a week (3 points) How many drinks did you have on a typical day when you were drinking in the past year? 3 or 4 drinks (1 point) How often did you have 6 or more drinks on one occasion in the past year? Never (0 point) Points 4 Interpretation Positive Problems Problem Type SNOMED Code ICD Code Onset Dates Problem Status W/U Status Risk Notes Problem 627601966 Pulmonary nodule, left (R91.1) Active confirmed His July [address] scan showed stability. Observation will continue. Problem 201209386 Hepatic steatosis (K76.0) Active confirmed This was a diagnosis made by a CT scan. He is currently clinically asymptomatic. Problem 877731578 Personal history of colonic polyps (Z86.010) Active confirmed Problem 98445650 Chronic major depressive disorder, recurrent episode (F33.9) Active confirmed He is coping well with the stress of this new problem. No change in his therapy was made. Problem 26251010 Generalized anxiety disorder (F41.1) Active confirmed We have discussed how to cope with the diagnosis of a pulmonary nodule. He found the visit to thoracic surgery reassuring. Problem 258554436 Pure hypercholester olemia, unspecified (E78.00) Active confirmed Vital Signs Temperature 99.4 degrees Fahrenheit 04/27/20 24 Blood pressure systolic 122 mm Hg 04/27/20 24 Blood pressure diastolic 71 mm Hg 024 Heart Rate 62 /min 04/27/2024 Height 5' 11 in 04/27/2024 Weight 174 lbs 04/27/2024 BMI 24.27 kg/m2 04/27/2024 Encounters Encounter Location Date Provider Diagnosis Jeramy Palafox III, MD [address] [place] [address] [place] [address] 04/27/2024 Jeramy Palafox Pulmonary nodule, left R91.1 Assessments Encounter Date Diagnosis (ICD Code) Assessment Notes Treatment Notes Treatment Clinical Notes 04/27/2024 Pulmonary nodule, left (ICD-10 - R91.1) The pulmonary nodule is1.5 cm, A PET/CT has been ordered. Plan Of Treatment Pending Test Test Name Order Date PET CT fusion skull to thigh 04/27/2024 Next Appt Details Follow Up: after Pet scan,2 Weeks, Reason: OV review Pet scan Progress Notes * Rock KNIGHTDOB: [birth year] (53 yo M)Acc No.[id number]:04/27/2024 Progress Notes Patient: Rock Monzon Provider: Aston Palafox MD :1970 A ge:53 Y S ex:Male Date:04/27/2024 Address:[address] [place] [address] Pcp:Ricci Everett MD Subjective: * Chief Complaints: * 1 .5 cm left lower lobe pulmonary nodule * HPI: C OVID-19 Screening: He is a very pleasant [address] Everett referred for evaluation and 1.5 cm left lower lobe nodule. He has a history of sinus and allergies and a chest x- ray showed a nodule. A CT scan was [facility] at [facility]. No lymph nodes were present. He is a smoker. 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 Questions H ave you experienced fever, chills, cough, sore throat, shortness of breath, difficulty breathing, muscle aches, loss of taste or smell? N o H ave you been exposed to the virus within the last 10 days? N o H ave you travelled internationally in the last 10 days? N o H ave you been exposed to COVID-19 in the past? N o * ROS: G eneral/Constitutional: pain o nly normal aches and pains. C hills d enies.?Fatigue a dmits. F ever d enies. E NT: Decreased hearing d enies. R espiratory: Cough n on-productive. C ardiovascular: Chest pain with exertion d enies. D yspnea on exertion?denies. S hortness of breath d enies. G astrointestinal: Constipation o ccasional. D ecreased appetite d enies. D iarrhea d enies. H eartburn d enies. N ausea d enies. R ectal bleeding d enies. V omiting d enies. H ematology: bruising d enies. p etechiae d enies. S wollen glands n one have been noted. G enitourinary: Frequent urination o nce a night. M usculoskeletal: Muscle aches d enies. P ainful joints d enies. S ciatica d enies. W eakness d enies. S kin: Itching d enies. R shabana d enies. S kin lesion(s)?denies. N eurologic: Difficulty speaking d enies. D izziness d enies.?Headache d enies. L ow back pain d enies. P sychiatric: Depressed mood d enies. * Medical History: * Surgical History: E ar drum replacement, Right * Hospitalization/Major Diagno stic Procedure: D enies Past Hospitalization * Family History: F ather: , prostate cancer. M other: alive. 2 brother(s) , 1 sister(s) - healthy. . An uncle of malignant melanoma, His mother had skin cancer. He is not aware of any family history of addiction or mental illness or mental illness. * Social History: T obacco Use: T obacco Use/Smoking P atient is a n onsmoker A dditional Findings: Tobacco Non-User A ggressive non-smoker D rugs/Alcohol: D rugs H ave you used drugs other than those for medical reasons in the past 12 months? N o Alcohol Screen D id you have a drink containing alcohol in the past year? Y es H ow often did you have a drink containing alcohol in the past year? 2 to 3 times a week (3 points) H ow many drinks did you have on a typical day when you were drinking in the past year? 3 or 4 drinks (1 point) H ow often did you have 6 or more drinks on one occasion in the past year? N ever (0 point) P oints 4 I nterpretation P ositive H e is a nonsmoker. 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 * Medications: T akingAlbuterol Sulfate HFA 108 (90 Base) MCG/ACT Aerosol Solution TAKE 2 PUFF(S) BY MOUTH FOUR TIMES A DAY NEEDED Inhalation Medication List reviewed and reconciled with the patientTaking Albuterol Sulfate HFA 108 (90 Base) MCG/ACT Aerosol Solution TAKE 2 PUFF(S) BY MOUTH FOUR TIMES A DAY NEEDED Inhalation Medication List reviewed and reconciled with the patient * Allergies: N o Known Drug Allergy Objective: * Vitals: H t:5' 11 , Wt: 174, BMI:24.27, BP: 122/71, HR: 62, Temp: 99.4, Ht-cm: 180.34, Wt- k.93. * Examination: G eneral Examination: GENERAL APPEARANCE: p leasant, well nourished, well developed, in no acute distress, calm and relaxed , man. HEAD: a traumatic, normocephalic. EYES: e nichole, perrla, anicteric, conjugate. EARS: n ormal. NOSE: s eptum intact. ORAL CAVITY: n ormal, unremarkable. NECK/THYROID: n o jugular venous distention, no carotid bruit, thyroid normal. LYMPH NODES: n o enlarged lymph nodes,spleen normal. SKIN: n o suspicious lesions, anicteric. HEART: n o clicks, gallops, murmurs, or rubs, regular rhythm, S1, S2 normal, no s3, or vascular bruits. LUNGS: c lear to auscultation . BREASTS: no masses palpable bilaterally. ABDOMEN: b owel sounds normal, no ascites, no organomegaly, no mass. RECTAL EXAM: n ot examined. MUSCULOSKELETAL: e xtremities unremarkable, no clubbing, cyanosis or edema. PERIPHERAL PULSES: n ormal. NEUROLOGIC: a lert and oriented, cranial nerves 2-12 grossly intact, deep tendon reflexes 2+ symmetrical, motor strength normal upper and lower extremities, sensory exam intact. PSYCH: a lert, oriented. Assessment: * Assessment: 1. P ulmonary nodule, left - R91.1 (Primary), The pulmonary nodule is1.5 cm, A PET/CT has been ordered. Plan: * Treatment: * Procedure Codes: * Follow Up: a fter Pet scan,2 Weeks (Reason: OV review Pet scan) * Images: * Sign off status: Completed true * Provider: Aston Palafox MD Date: 0 04/27/2024 Generated for Blaise rivera/Dulce Maria/eTlewis on: 10/23/2024 04:39 PM EST History and Physical Notes * HPI (History of Present Illness) Category Sub-Category Detail Notes COVID-19 Screening Questions Have you had any new onset fever, chills, cough, congestion, sore throat, shortness of breath, muscle aches?: No Have you been exposed to the virus withi n the last 10 days?: No Have you travelled internationally in last 10 days?: No Have you been exposed to COVID-19 in the past?: No Examination Category Sub-Category Detail Notes General Examination GENERAL APPEARANCE: pleasant , well nourished, well developed, in no acute distress, calm and relaxed , man HEAD: atraumatic, normocep halic EYES: eomi, perrla, anicte aristeo, conjugate EARS: normal NOSE: septum intact NECK/THYROID: no jugular venous di stention, no carotid bruit, thyroid normal HEART: no clicks, gallops, murmurs, or rubs, regular rhythm, S1, S2 normal, no s3, or vascular bruits LUNGS: clear to auscultatio n ABDOMEN: bowel sounds normal, no ascites, no organomegaly, no mass NEUROLOGIC: alert and oriented, cranial nerves 2-12 grossly intact, deep tendon reflexes 2+ symmetrical, motor strength normal upper and lower extremities, sensory exam intact SKIN: no suspicious lesion s, anicteric PERIPHERAL PULSES: normal BREASTS: no masses palpable b ilaterally MUSCULOSKELETAL: extremities unremark able, no clubbing, cyanosis or edema LYMPH NODES: no enlarged lymph no joselin,spleen normal RECTAL EXAM: not examined PSYCH: alert, oriented ORAL CAVITY: normal, unremarkable
--- OUTSIDE RECORDS SUMMARY | 2024-05-12 08:28 | XMS_ITS ---
Author Organization Jeramy Palafox III, MD Address [address] [place] [address] [place] [address] Care Team Providers Care Die Tester Name Role Phone Ricci Everett MD Primary Care Provider Dr. Jeramy Falcon III Unavailable Reason For Referral Reason 1.5 cm Pet Negative lung nodule Diagnosis 1 Pulmonary nodule, le ft (R91.1) Referral Organization Jeramy Palafox III, MD Referring Provider First Name Jeramy Referring Provider Last Name Javy Referring Provider Speciality Internal M edicine Referred Organization [facility] Referred Provider Betty Stark Referred Address [address], [id number], Referred Provider Specialty Thoracic Devorah loren General Notes Cathy Lopez CM 05/12/2024 01:50:01 PM EDT > Called Dr Stark office spoke to Kelly she stated if he is a new patient then the referral/progress notes /labs/x rays needs to be faxed to her at [phone] they will call patient with appointment information . pt called and made aware of this . pt needs F/U TV here with Dr Palafox after pt is seen by [place] Suzanne CMA 05/19/2024 09:17:25 AM EDT > Called Dr Stark office pt has appt with Dr Stark on 05/31/2024 Referral Priority Routine Referral Appointment Date 05/31/2024 REASON FOR VISIT Pet scan results Social History Sex Assigned At : Social History Observation Description Sex Assigned At Male Encounters Encounter Location Date Provider Diagnosis Jeramy Palafox III, MD [address] [place] [address] [place] [address] 05/12/2024 Jeramy Palafox Plan Of Treatment Referrals Referral Date Details 05/12/2024 05/12/2024, 1.5 cm P et Negative lung nodule , Betty Stark, [address] [facility] [place], [place], [id number], Progress Notes * Rock KNIGHTDOB: [birth year] (53 yo M)Acc No.[id number]:05/12/2024 Patient: Rock Monzon :1970 A ge:53 Y S ex:Male Address:[address] [place] [address], [address] Subjective: * Chief Complaints: * P et scan results * Medical History: * Surgical History: * Hospitalization/Major Diagno stic Procedure: * Medications: Objective: Assessment: Plan: * Treatment: * Procedure Codes: * true * Date: Generated for Blaise rivera/Dulce Maria/eTransmitting on: 10/23/2024 04:38 PM EST Consultation Request Notes Referral Date Referring Provider Referred Provider Not es 05/12/2024 Jeramy Palafox Laki 1.5 cm Pet Neg ative lung nodule
--- OUTSIDE RECORDS SUMMARY | 2024-05-17 13:00 | XMS_ITS ---
Author Organization Jeramy Palafox III, MD Address [address] [place] [address] [place] [address] Care Team Providers Care Rawhide Bone Roller Name Role Phone Ricci Everett MD Primary Care Provider Dr. Jeramy Falcon III Unavailable [phone] REASON FOR VISIT follow up Social History Sex Assigned At : Social History Observation Description Sex Assigned At Male Encounters Encounter Location Date Provider Diagnosis Jeramy Palafox III, MD [address] [place] [address] [place] [address] 05/17/2024 Jeramy Palafox Plan Of Treatment No Information Progress Notes * Rock KNIGHTDOB: [birth year] (54 yo M)Acc No.[id number]:05/17/2024 Progress Notes Patient: Rock PATEL Provider: Aston Palafox MD :1970 A ge:53 Y S ex:Male Date:05/17/2024 Address:[address] [place], [place] [id number] Pcp:Ricci Everett MD Subjective: * Chief Complaints: * 1 . Follow up. * Medical History: Objective: * Vitals: Assessment: Plan: * Treatment: * Images: * The named appointment provid er may or may not be the originator of this progress note, and it is not deemed complete until electronically signed by the appointment provider. Sign off status: Pending * Provider: Aston Palafox MD Date: 0 05/17/2024 Generated for Hananei ng/Facorbing/eTransmitting on: 10/23/2024 04:38 PM EST
--- OUTSIDE RECORDS SUMMARY | 2024-05-24 12:00 | XMS_ITS ---
Author Organization Jeramy Palafox III, MD Address [address] [place] [address] [place] [address] Care Team Providers Care Air And Water Tester Name Role Phone Ricci Everett MD Primary Care Provider Dr. Jeramy Falcon III Unavailable REASON FOR VISIT follow up Social History Sex Assigned At : Social History Observation Description Sex Assigned At Male Encounters Encounter Location Date Provider Diagnosis Jeramy Palafox III, MD [address] [place] [address] [place] [address] 05/24/2024 Jeramy Palafox Plan Of Treatment No Information Progress Notes * Rock KNIGHTDOB: [birth year] (54 yo M)Acc No.[id number]:05/24/2024 Progress Notes Patient: Rock PATEL Provider: Aston Palafox MD :1970 A ge:53 Y S ex:Male Date:05/24/2024 Address:[address] [place], [place] [id number] Pcp:Ricci Everett MD Subjective: * Chief Complaints: [...] * Provider: Aston Palafox MD Date: 0 05/24/2024 Generated for Hananei ng/Facorbing/eTransmitting on: 10/23/2024 04:38 PM EST
--- OUTSIDE RECORDS SUMMARY | 2024-06-07 10:45 | XMS_ITS ---
Author Organization Jeramy Palafox III, MD Address [address] [place] [address] [place] [address] Care Team Providers Care [employer] Mica Name Role Phone Ricci Everett MD Primary Care Provider Dr. Jeramy Falcon III Unavailable Allergies Allergen (clinical drug ingredient) Drug/Non Drug Allergy documented on EMR Reaction Allergy Type Onset Date Status No Known Drug Allergy Unknown Drug Allergy Active REASON FOR VISIT 1.5 cm left lower lobe nodule Medications Medication SIG (Take, Route, Frequency, Duration) Notes Start Date End Date Status Albuterol Sulfate HFA 108 (90 Base) MCG/ACT TAKE 2 PUFF(S) BY MOUTH FOUR TIMES A DAY NEEDED Inhalation Active Social History Tobacco Use: Social History Observation Description Date Details (start date - stop date) Never Smoker NA - NA Sex Assigned At : Social History Observation Description Sex Assigned At Male Tobacco Use/Smoking Question Answer Notes Patient is a nonsmoker Additional Findings: Tobacco Non-User Aggressive non-smoker Encounters Encounter Location Date Provider Diagnosis Jeramy Palafox III, MD [address] [place] [address] [place] [address] 06/07/2024 Jeramy Palafox Pulmonary nodule, le ft R91.1 ; Chronic major depressive disorder, recurrent episode F33.9 and Generalized anxiety disorder F41.1 Assessments Encounter Date Diagnosis (ICD Code) Assessment Notes Treatment Notes Treatment Clinical Notes 06/07/2024 Pulmonary nodule, left (ICD-10 - R91.1) The pulmonary nodule is1.5 cm, A PET/CT has been nondiagnostic. Thoracic surgery is going to repeat a CT scan in July 2024 and then make a decision about resection. 06/07/2024 Chronic major depressive disorder, recurrent episode (ICD-10 - F33.9) He is coping well with the stress of this new problem. No change in his therapy was made. 06/07/2024 Generalized anxiety disorder (ICD-10 - F41.1) We have discussed how to cope with the diagnosis of a pulmonary nodule. He found the visit to thoracic surgery reassuring. Plan Of Treatment Medication Medication Name Sig Start Date Stop Date Notes Albuterol Sulfate HFA 108 (9 0 Base) MCG/ACT TAKE 2 PUFF(S) BY MOUTH FOUR TIMES A DAY NEEDED Inhalation Next Appt Details Follow Up: end july , Reason: OV review ct scan of chest done by Dr Stark Progress Notes * Rock KNIGHTDOB: [birth year] (53 yo M)Acc No.[id number]:06/07/2024 Patient: Rock Monzon Provider: Aston Palafox MD :1970 A ge:53 Y S ex:Male Date:06/07/2024 Address:[address] [place] [address] Pcp:Ricci Everett MD Subjective: * Chief Complaints: * 1 .5 cm left lower lobe nodule * HPI: * : He has seen the thoracic surgeon, Dr. Stark for the 1.5 cm left lower lobe nodule. Because of the poor uptake on PET CT he is going to repeat the CT scan in July 2024 and then make a decision about resection. 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 He denies any cough and feels generally well. Telehealth L ocation of provider rendering services: { ...} [facility] [address] [place] [id number] L ocation of patient: erica ddress listed in demographics for today's visit P atient identification confirmed using: DIEGO Henry ame T elehealth method: T elephone only. Patient not visible to care provider. C onsent: P atient verbally consented to treatment, Patient verbally consented to billing insurance company, Patient informed of any privacy concerns related to method of visit T otal time spent with patient (mins) 1 5 * ROS: G eneral/Constitutional: pain o nly normal aches and pains. C hills d enies.?Fatigue a dmits. F ever d enies. E NT: Decreased hearing d enies. R espiratory: Cough d enies. C ardiovascular: Chest pain with exertion d enies. D yspnea on exertion?denies. S hortness of breath d enies. G astrointestinal: Constipation d enies. D ecreased appetite d enies.?Diarrhea d enies. H eartburn d enies. N ausea d enies. R ectal bleeding?denies. V omiting d enies. H ematology: bruising [...] pain d enies. P sychiatric: Depressed mood A nxious. * Medical History: * Surgical History: E [...] dditional Findings: Tobacco Non-User A ggressive non-smoker H e is a nonsmoker. He is [...] patient * Allergies: N o Known Drug Allergyno[Allergies Verified] Objective: Assessment: * Assessment: 1. P ulmonary nodule, left - R91.1 (Primary), The pulmonary nodule is1.5 cm, A PET/CT has been nondiagnostic. Thoracic surgery is going to repeat a CT scan in July 2024 and then make a decision about resection. 2 . C hronic major depressive disorder, recurrent episode - F33.9, He is coping well with the stress of this new problem. No change in his therapy was made. 3 . G eneralized anxiety disorder - F41.1, We have discussed how to cope with the diagnosis of a pulmonary nodule. He found the visit to thoracic surgery reassuring. Plan: * Treatment: * Procedure Codes: * Follow Up: e july (Reason: OV review ct scan of chest done by Dr Stark ) * Images: * Sign off status: Completed true * Provider: Aston Palafox MD Date: 0 06/07/2024 Generated for Blaise rivera/Dulce Maria/Angellaransmitting on: 1 10/23/2024 04:38 PM EST History and Physical Notes * HPI (History of Present Illness) Category Sub-Category Detail Notes Telehealth Location of [facility] rendering services:: {...} [address] [place] [address] [address] [place] [id number] Location of patient:: address listed in demographics for today's visit Patient identification confirmed using:: Name, Telehealth method:: Telephone only. Gina ent not visible to care provider. Consent:: Patient verbally c onsented to treatment, Patient verbally consented to billing insurance company, Patient informed of any privacy concerns related to method of visit Total time spent with patient (mins): 15
--- OUTSIDE RECORDS SUMMARY | 2024-08-18 11:15 | XMS_ITS ---
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 Jeramy Falcon III Unavailable Allergies Allergen (clinical drug ingredient) Drug/Non Drug Allergy documented on EMR Reaction Allergy Type Onset Date Status No Known Drug Allergy Unknown Drug Allergy Active REASON FOR VISIT Pulmonary nodule, Depression, Lysed anxiety disorder, Hyperlipidemia, Hepatic steatosis Medications Medication SIG (Take, Route, Frequency, Duration) Notes Start Date End Date Status Albuterol Sulfate HFA 108 (90 Base) MCG/ACT TAKE 2 PUFF(S) BY MOUTH FOUR TIMES A DAY NEEDED Inhalation Active Doxycycline Hyclate 100 MG TAKE 1 CAPSUL E BY MOUTH TWICE A DAY Oral PRN Active Social History Tobacco Use: Social History Observation Description Date Details (start date - stop date) Never Smoker NA - NA Sex Assigned At : Social History Observation Description Sex Assigned At Male Tobacco Use/Smoking Question Answer Notes Patient is a nonsmoker Additional Findings: Tobacco Non-User Aggressive non-smoker Vital Signs Temperature 98.4 degrees Fahrenheit 08/18/20 24 Blood pressure systolic 140 mm Hg 08/18/20 24 Blood pressure diastolic 79 mm Hg 024 Heart Rate 76 /min 08/18/2024 Height 5' 11 in 08/18/2024 Weight 178 lbs 08/18/2024 BMI 24.82 kg/m2 08/18/2024 Encounters Encounter Location Date Provider Diagnosis Jeramy Palafox III, MD [address] [place] [address] [place] [address] 08/18/2024 Jeramy Palafox Pulmonary nodule, left R91.1 ; Hepatic steatosis K76.0 and Chronic major depressive disorder, recurrent episode F33.9 Assessments Encounter Date Diagnosis (ICD Code) Assessment Notes Treatment Notes Treatment Clinical Notes 08/18/2024 Pulmonary nodule, left (ICD-10 - R91.1) His July [address] scan showed stability. Observation will continue. 08/18/2024 Hepatic steatosis (ICD-10 - K76.0) This was a diagnosis made by a CT scan. He is currently clinically asymptomatic. 08/18/2024 Chronic major depressive disorder, recurrent episode (ICD-10 - F33.9) He is coping well with the stress of this new problem. No change in his therapy was made. Plan Of Treatment Medication Medication Name Sig Start Date Stop Date Notes Albuterol Sulfate HFA 108 (9 0 Base) MCG/ACT TAKE 2 PUFF(S) BY MOUTH FOUR TIMES A DAY NEEDED Inhalation Doxycycline Hyclate 100 MG TAKE 1 CAPSUL E BY MOUTH TWICE A DAY Oral PRN Next Appt Details Follow Up: 4 Months, Reason: Office visit Progress Notes * ASHWIN RockDOB: [birth year] (54 yo M)Acc No.[id number]:08/18/2024 Progress Notes Patient: Rock PATEL Provider: Aston Palafox MD :1970 A ge:53 Y S ex:Male Date:08/18/2024 Address:[address] [place] [address] Pcp:Ricci Everett MD Subjective: * Chief Complaints: * 1 . Pulmonary nodule. 2. Depression. 3. Lysed anxiety disorder. 4. Hyperlipidemia. 5. Hepatic steatosis. * HPI: C [place]-19 Screening: He returns for follow-up of his left lower lobe pulmonary noduule. A CT scan 2023 showed a 1.5 x 1.5 cm left lower lobe nodule. A PET CT scan done May 06, 2024 showed no metabolic activity in the thorax. A repeat CT scan of the chest August 16, 2024 showed the left lower lobe nodule to be stable at 1.4 cm with no adenopathy and no other nodules. It is thought this nodule is benign and it is being observed. He is being followed by his thoracic surgeon, Dr.Laki Caputo as well as his primary care physician Dr. Efra Everett. His examination today showed no sign of lung cancer. His clinical status is unchanged. All of his questions were answered in great detail. Questions H ave you had any new onset fever, chills, cough, congestion, sore throat, shortness of breath, muscle aches? N o H ave you been exposed [...] pain d enies. P sychiatric: Depressed mood M oderate anxiety. * Medical History: C hronic bronchitis, Right ear infecti, Hyperlipidemia. * Surgical History: E ar drum replacement, Right . * Hospitalization/Major Diagno stic Procedure: D enies Past Hospitalization. * Family History: F ather: , prostate cancer. M other: alive. 2 brother(s) , 1 sister(s) - healthy. . An uncle of malignant melanoma, His mother had skin cancer. He is not aware of any family history of addiction or mental illness or mental illness. * Social History: T obacco Use: T obacco Use/Smoking Reagan stauffer is a n onsmoker A dditional Findings: Tobacco Non-User A ggressive non-smoker H norma is a nonsmoker. 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 * Medications: T aking Albuterol Sulfate HFA 108 (90 Base) MCG/ACT Aerosol Solution TAKE 2 PUFF(S) BY MOUTH FOUR TIMES A DAY NEEDED Inhalation , Taking Doxycycline Hyclate 100 MG Capsule TAKE 1 CAPSULE BY MOUTH TWICE A DAY Oral , Notes to Pharmacist: PRN, Medication List reviewed and reconciled with the patient * Allergies: N o Known Drug Allergy. Objective: * Vitals: H t: 5' 11 , Wt: 178, BMI:24.82, BP: 140/79, HR: 76, Temp: 98.4, Ht-cm: 180.34, Wt-k.74. * Examination: G eneral Examination: GENERAL APPEARANCE: p leasant, well nourished, well developed, in no acute distress, anxious m an. HEAD: a traumatic, normocephalic. EYES: e nichole, [...] 1. P ulmonary nodule, left - R91.1 (Primary) N otes :His July [address] scan showed stability. Observation will continue. 2 . H epatic steatosis - K76.0 N otes :This was a diagnosis made by a CT scan. He is currently clinically asymptomatic. 3 . C hronic major depressive disorder, recurrent episode - F33.9 ?Notes :He is coping well with the stress of this new problem. No change in his therapy was made. Plan: * Treatment: 2. O thers Continue Albuterol Sulfate HFA Aerosol Solution, 108 (90 Base) MCG/ACT, TAKE 2 PUFF(S) BY MOUTH FOUR TIMES A DAY NEEDED, Inhalation. * Follow Up: 4 Months (Reason: Office visit) * Images: * The named appointment provid er may or may not be the originator of this progress note, and it is not deemed complete until electronically signed by the appointment provider. Sign off status: Pending * Provider: Aston Palafox MD Date: Generated for Blaise rivera/Dulce Maria/Juvesmitting on: 10/23/2024 04:39 PM EST History and Physical Notes * HPI (History of Present Illness) Category Sub-Category Detail Notes COVID-19 Screening Questions Have you had any new onset fever, chills, cough, congestion, sore throat, shortness of breath, muscle aches?: No Have you been exposed to the virus withi n the last 10 days?: No Have you travelled internationally in e last 10 days?: No Have you been exposed to COVID-19 in the past?: No Examination Category Sub-Category Detail Notes General Examination GENERAL APPEARANCE: pleasant , well nourished, well developed, in no acute distress, anxious man HEAD: atraumatic, normocep halic EYES: eomi, [...]
--- OUTSIDE RECORDS SUMMARY | 2024-12-30 04:20 | XMS_ITS ---
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 Jeramy Falcon III Unavailable [phone] REASON FOR VISIT Message Social History Sex Assigned At : Social History Observation Description Sex Assigned At Male Encounters Encounter Location Date Provider Diagnosis Jeramy Palafox III, MD [address] [place] [address] [place] [address] 12/30/2024 Jeramy Palafox Plan Of Treatment No Information Progress Notes * ASHWIN RockDOB: [birth year] (54 yo M)Acc No.[id number]:12/30/2024 Patient: Rock PATEL :1970 A ge:54 Y S ex:Male Address:[address] [place] [address], [address] * true * Date: Generated for Hananei miguel/Dulce Maria/eTransmitting on: 10/23/2024 04:38 PM EST
--- OUTSIDE RECORDS SUMMARY | 2025-01-04 11:45 | XMS_ITS ---
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 Jeramy Falcon III Unavailable REASON FOR VISIT follow up Social History Sex Assigned At : Social History Observation Description Sex Assigned At Male Encounters Encounter Location Date Provider Diagnosis Jeramy Palafox III, MD [address] [place] [address] [place] [address] 01/04/2025 Jeramy Palafox Plan Of Treatment No Information Progress Notes * Rock KNIGHTDOB: [birth year] (54 yo M)Acc No.[id number]:01/04/2025 Progress Notes Patient: Rock PATEL Provider: Aston Palafox MD :1970 A ge:54 Y S ex:Male Date:01/04/2025 Address:[address] [place], [place] [id number] Pcp:Ricci Everett MD Subjective: * Chief Complaints: [...] * Provider: Aston Palafox MD Date: 0 01/04/2025 Generated for Hananei ng/Facorbing/eTransmitting on: 1 10/23/2024 04:38 PM EST
--- NOTE | 2025-08-23 13:37 | MHC.PC.OV ---
Vital Signs 08/23/25 13:43 Height 5 ft 9.29 in Weight 182 lb BMI 26.6 BP 158/72 H Blood Pressure Location Lt brachial Position Sitting Pulse 81 Pulse Source Pulse Oximeter Temp 98 F Temp Source Temporal Artery Scan Pulse Oximetry (%) 97 Oxygen Delivery Method Room Air Intake Visit Reasons: Same Day Tic Bite Jira Developer Required: No Accompanied by: Self / Same As Patient Allergies No Known Allergies Allergy (Verified 08/23/25 13:37) Tobacco use date assessed: 08/23/25 Dental Screening Dental Screen Date: 08/23/25 Did you have a dental visit in the last 12 months?: No Did you have a dental problem in the last 6 months where you did not have access to dental care?: Yes Was dental information given to patient?: Patient has dentist HPI HPI Comments History of Present Illness Details The patient is a 54-year-old male presenting with a follow-up for a tick bite. He recently experienced a tick bite on his left leg, which occurred a few days ago. After removing most of the ticks himself, he notes that a fragment remained embedded, leading to a persistent scar. Attempts to manually remove or shave the skin resulted in bleeding. He has noticed a distinct clearing area surrounding the bite, which is then followed by generalized redness around the lesion. This presentation is reminiscent of past incidents, during which he received successful treatment with doxycycline. Currently, the patient denies experiencing fever or chills. In addition to the tick bite, the patient has a documented history of essential hypertension. Recent blood pressure readings indicate elevated systolic values, ranging from 150 to 160 mmHg. Despite this, he does not report any symptomatic manifestations typically associated with elevated blood pressure at this time. The patient also has a history of recurrent skin lesions located primarily on his forehead, neck, and various parts of his body. These lesions have scabbed over and demonstrate delayed healing. He is scheduled to see a licensed psychologist manager for further evaluation. Documentation includes a prior Mohs surgery on the face, although no conclusive cancer diagnosis has been established from previous biopsies. Medical History: - Recurrent tick bites, treated with doxycycline - Generalized Anxiety Disorder, untreated - Essential Hypertension - COVID-19 infection, resolved two weeks ago - History of multiple skin lesions, pathology unknown - Seasonal allergies Surgical History: - Mole surgery, details unspecified - Possible lung nodule resection Medications: - No current medications reported Family History: - Father with coronary artery disease - Maternal side history of melanoma; cousin with aggressive melanoma Diagnostic Results: - COVID-19 test: Negative post-infection - Colonoscopy (2019): Recommendation for repeat screening in 5 or 10 years Social History: - 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 [employer] - Alcohol: Consumes two to three alcoholic beverages daily, rarely more than six drinks per occasion within the past six months - Tobacco and Illicit Drug Use: Denies smoking, marijuana, heroin, and cocaine use - [place], contributing to frequent tick bites [facility] Medical History (Updated 08/23/25 @ 18:33 by Melchor Mcdonough MD) Skin lesion Tick bite Hypertension Social History Housing: House Patient Tobacco Use Status: Never used Tobacco e-Cigarette/Vaping Use: Never Used service: No Current occupational status: employed Current occupation: [employer] Questionnaire PHQ-9 Over the last 2 weeks, how often have you been bothered by any of the following problems? 1. Little interest or pleasure in doing things: not at all 2. Feeling down, depressed, or hopeless: not at all 3. Trouble falling or staying asleep, or sleeping too much: not at all 4. Feeling tired or having little energy: not at all 5. Poor appetite or overeating: not at all 6. Feeling bad about yourself - or that you are a failure or have let yourself or your family down: not at all 7. Trouble concentrating on things, such as reading the newspaper or watching television: not at all 8. Moving or speaking so slowly that other people could have noticed. Or the opposite - being so fidgety or restless that you have been moving around a lot more than usual: not at all 9. Thoughts that you would be better off or of hurting yourself in some way: not at all Total score: 0 Depression Screening Interpretation: Negative Depression Screening Done: Yes 44211 - PHQ-9 Billing: Yes Source: Developed by Drs. Jeramy Obrien, Sybil Purcell, Jareth Varner and colleagues, with an educational byron from [email or web address]. Thrive Questionnaire Date Thrive assessed: 08/23/25 I am a: Patient What is your living situation today?: I have a steady place to live Within the past 12 months, did the food you bought not last and you didn't have the money to get more?: Never true Within the past 12 months, did you worry whether your food would run out before you got money to buy more?: Never true Do you have trouble paying for medicines?: No Do you have trouble getting transportation to medical appointments?: No Do you have trouble paying your heating and electricity bill?: No Do you have trouble taking care of your child, family member or friend?: No Do you have trouble with day-to-day activities such as bathing, preparing meals, shopping, managing finances, etc.?: No Are you currently unemployed and looking for a job?: No Are you interested in more education?: No THRIVE Score: 0 AUDIT C Alcohol Use Questionnaire (AUDIT-C) 1. How often do you have a drink containing alcohol?: 4 or more times a week 2. How many drinks containing alcohol do you have on a typical day when you are drinking?: 3 or 4 3. How often do you have six or more drinks on one occasion?: Less than monthly Total Score: 6 Score Reviewed/Action Taken: Yes GINA-7 AMB Questionnaire GINA-7 Date GINA - 7 assessed: 08/23/25 Feeling nervous, anxious, or on edge: 0 = Not at all Not being able to stop or control worryin = Not at all Worrying too much about different things: 1 = Several days Trouble relaxin = Not at all Being so restless that it is hard to sit still: 1 = Several days Becoming easily annoyed or irritable: 0 = Not at all Feeling afraid as if something awful might happen: 1 = Several days Total GINA-7 score (0-4 normal; 5-9 mild; 10-14 moderate; 15-21 severe): 3 Source: Developed by Drs. Jeramy Obrien, Sybil Purcell, Jareth Varner and colleagues, with an educational byron from [email or web address]. GINA-7 Assessment Billing GINA-7 Assessment Tool: GINA-7 Assessment 42491 Review of Systems Narrative - General: Denies fever or chills - Integumentary: Reports a recent tick bite on the leg, history of multiple skin lesions - Respiratory: Denies cough, shortness of breath, or difficulty urinating - Genitourinary: Denies dysuria - Gastrointestinal: Denies dysphagia - All other systems reviewed were negative All systems reviewed & are unremarkable except as reviewed in HPI and above Physical exam (Primary Care) Vital Signs: Last Vital Signs Temp 98 F 08/23/25 13:43 Pulse 81 08/23/25 13:43 BP 158/72 H 08/23/25 13:43 Pulse Ox 97 08/23/25 13:43 Oxygen Delivery Method Room Air 08/23/25 13:43 BMI result Body Mass Index 26.6 Tobacco/Smoking Status: Tobacco use Status Tobacco use date assessed 08/23/25 08/23/25 13:48 Patient Tobacco Use Status Never used Tobacco 08/23/25 13:48 e-Cigarette/Vaping Use Never Used 08/23/25 13:48 PHQ-9: PHQ-9 Score PHQ-9: Total score 0 08/23/25 13:56 Depression Screening Interpretation: Negative Thrive Assessment: Date of Thrive Assessment Date Thrive assessed 04/12/23 08/23/25 13:48 Narrative General: Alert and oriented, Well nourished, No acute distress. Eye: Pupils are equal, round and reactive to light, Intact accommodation, Extraocular movements are intact, Normal conjunctiva, Vision unchanged. HENT: Normocephalic, Atraumatic, Tympanic membranes are clear, Normal hearing, Oral mucosa is moist, No pharyngeal erythema, Ear canals patent. Respiratory: Lungs CTA bilaterally, No wheeze, Respirations are non-labored. Cardiovascular: Regular rate, Regular rhythm, S1 auscultated, S2 auscultated, No murmur, Good pulses equal in all extremities, Normal peripheral perfusion, No edema. Gastrointestinal: Soft, Non-tender, Non-distended, Normal bowel sounds, No organomegaly. Musculoskeletal: Normal range of motion, Normal strength, No tenderness, No swelling, No deformity, Normal gait. Integumentary: Warm, Dry, [place], Intact. Multiple lesions on the forehead, face, neck, and back. On the left upper thigh, there is a dark spot surrounded by redness, slightly tender. Skin lesions on the head of varying colors and sizes. Scar on the leg. Neurologic: Alert, Oriented, Normal sensory, Normal motor function, No focal defects, Cranial Nerves II-XII are grossly intact, Normal deep tendon reflexes. Psychiatric: Cooperative, Appropriate mood & affect, Normal judgment. Previously diagnosed with generalized anxiety disorder. Coding Level of Care Code New Pt Level 4 (28371) Complex EM visit Add On G2211 Diagnoses Hypertension, unspecified type I10 Hypertension type: unspecified Tick bite, unspecified site, initial encounter W57.XXXA Encounter type: initial encounter Site of tick bite: unspecified site Skin lesion L98.9 Additional Codes GINA-7 Assessment Billing - GINA-7 Assessment Tool: GINA-7 Assessment 62785 ([id number]) PHQ-9 - 49778 - PHQ-9 Billing: Yes ([id number]) Assessment & Plan Assessment & Plan (1) Hypertension: Comment: - Advise a blood pressure log over the next three weeks for further evaluation. - Discussed potential initiation of treatment with an BRONSON inhibitor, CCB, or ARB contingent on lab results. Code(s): I10 - Essential (primary) hypertension Category: Medical Qualifiers: Hypertension type: unspecified Qualified Code(s): I10 - Essential (primary) hypertension (2) Tick bite: Comment: - Prescribe doxycycline 100 mg BID due to the lesion's presentation. - Instruct the patient on tick prevention and ensure vigilant monitoring for infection signs. Code(s): W57.XXXA - Bitten or stung by nonvenomous insect and other nonvenomous arthropods, initial encounter Category: Medical Qualifiers: Encounter type: initial encounter Site of tick bite: unspecified site Qualified Code(s): W57.XXXA - Bitten or stung by nonvenomous insect and other nonvenomous arthropods, initial encounter (3) Skin lesion: Comment: - Refer to dermatology for evaluation. - Follow-up with dermatology appointments regularly.- Code(s): L98.9 - Disorder of the skin and subcutaneous tissue, unspecified Category: Medical Plan: Health Maintenance: - Recommended lab tests: CBC, CMP, thyroid panel, lipid panel, hepatitis panel, HIV testing, and vitamin D levels - Advised vaccinations for influenza and COVID-19 - Inquired about colonoscopy scheduling and follow-up with field service technician poultry Plan During the visit, I discussed the management plan for the patient's tick bite, recommending a complete doxycycline course due to his history and lesion presentation. I emphasized the importance of prophylactic measures against tick exposure. The patient's hypertension was addressed with guidance on tracking blood pressure at home and a plan to initiate treatment depending on future assessments. We acknowledged the untreated status of his generalized anxiety disorder and planned to explore management options in subsequent visits. Health maintenance discussions highlighted necessary lab evaluations and ensuring up-to-date vaccinations. I advised the patient to clarify the colonoscopy schedule with his field service technician poultry. Orders: Orders Complete Blood Count Auto Diff Today Z76.89 - Persons encountering health services in other specified circumstances Comprehensive Met. Panel Today Z76.89 - Persons encountering health services in other specified circumstances Hemoglobin A1c Today Z76.89 - Persons encountering health services in other specified circumstances Hepatitis A,B,C Profile Today Z76.89 - Persons encountering health services in other specified circumstances HIV Ab/Ag Today Z76.89 - Persons encountering health services in other specified circumstances Lipid Panel Today Z76.89 - Persons encountering health services in other specified circumstances Syphilis Screen Today Z76.89 - Persons encountering health services in other specified circumstances Vitamin D 25-OH Total Today Z76.89 - Persons encountering health services in other specified circumstances TSH reflex Free T4 Today Z76.89 - Persons encountering health services in other specified circumstances Referrals Dermatology Referral L98.9 - Disorder of the skin and subcutaneous tissue, unspecified Medications: New doxycycline hyclate 100 mg PO BID 20 caps 0RF Patient Instructions: - Take doxycycline 100 mg twice daily as directed. - Record your blood pressure at home for the next three weeks. - Follow up in three weeks to review your blood pressure log. - Get flu and COVID-19 vaccines as discussed. - Reach out to your field service technician poultry to check when your next colonoscopy is due. - Complete all recommended lab tests. - Watch for any worsening symptoms, such as rashes or fatigue, and seek care accordingly. - Employ tick preventive methods regularly.
[2025-08-23 13:43] VITALS: BP 158/72; PULSE 81; TEMP 36.6; O2SAT 97; BMI 26.6
--- OUTSIDE RECORDS SUMMARY | 2025-08-23 16:38 | XMS_ITS | Clinical Summary ---
Author Organization [facility] Address [address] [place] [id number] Phone Care Team Providers Care Corporate Sales Representative Name Role Phone Ricci Everett MD Primary Care Provider Allergies No known active allergies Medications No known medications Active Problems Problem Noted Date Diagnosed Date Actinic keratosis 07/23/2013 Overview (10/12/2021): Actinic Keratosis Benign neoplasm of skin of trunk 07/23/2013 Overview (10/12/2021): Benign Skin Neoplasm Of The Trunk Neoplasm of uncertain behavior of skin 3 Overview (10/12/2021): Skin Neoplasm Of Uncertain Behavior Immunizations Immunization Administration Dates Next Due Influenza, Unspecified Formulation 08/14/2011,,08/18/2009 Pneumococcal polysaccharide PPSV23 07/30/2010 Social History Tobacco Use Types Packs/Day Years Used Date Smoking Tobacco: Never Smokeless Tobacco: Never Education Answer Date Recorded Are you interested in more education? Not on xuan e 03/02/2023 Are you concerned about learning? Not on file 03/02/2023 No 03/02/2023 No 03/02/2023 Digital Access Answer Date Recorded No 03/15/2023 No 03/15/2023 Reliable internet access at home? Not on file 03/15/2023 Device with a working camera? Not on file Sex and Gender Information Value Date Recorded Sex Assigned at Not on file Legal Sex Male 5:58 PM EST Gender Identity Not on file Sexual Orientation Not on file Last Filed Vital Signs Vital Sign Reading Time Taken Comments Blood Pressure 135/81 08/16/2023 1:01 PM EDT Pulse 71 08/16/2023 1:01 PM EDT Temperature 37.6 C (99.7 F) 08/16/2023 1:01 PM EDT Respiratory Rate 17 08/16/2023 1:01 PM EDT Oxygen Saturation 97% 08/16/2023 1:01 PM EDT Inhaled Oxygen Concentration - - Weight 79.4 kg (175 lb) 08/16/2023 1:01 PM EDT Height 180.3 cm (5' 11 ) 08/16/2023 1:01 PM EDT Body Mass Index 24.41 08/16/2023 1:01 PM EDT Plan of Treatment Health Maintenance Due Date Last Done Comments DEPRESSION SCREENING 1981 HEPATITIS C SCREENING 1987 HIV ONE-TIME SCREENING (18-65 YEARS) 1987 COLOGUARD 2014 COLONOSCOPY 2014 COLORECTAL CANCER SCREENING 2014 FIT TEST 2014 FOBT 2014 SIGMOIDOSCOPY 2014 VIRTUAL COLONOSCOPY 2014 PNEUMOCOCCAL VACCINES (50+ years) (2 of 2 - PCV) 2019 07/30/2010 ZOSTER VACCINES (2 of 2) 08/28/2020 07/03/2020 Adult Td,Tdap Booster 08/05/2023 08/05/2013 INFLUENZA VACCINE (#1) 2025 , 07/03/2020, 07/13/2019, Additional history exists COVID-19 VACCINE ( season) 2025 09/04/2021, 02/02/2021, 01/03/2021 LIPID PANEL 12/29/2027 12/28/2022 RSV VACCINE (1 - 1-dose 75+ series) 2044 SMOKING STATUS SCREENING (Once After 26 Yrs) Completed 08/16/2023 HEPATITIS A VACCINES Aged Out No long er eligible based on patient's age to complete this topic HIB VACCINES Aged Out No longer eligi ble based on patient's age to complete this topic MENINGOCOCCAL VACCINES (ACWY) Aged Out No longer eligible based on patient's age to complete this topic MENINGOCOCCAL VACCINES (B) Aged Out N o longer eligible based on patient's age to complete this topic Medical Devices Not on file Procedures Procedure Name Priority Date/Time Associated Diagnosis Comments LIPID PANEL Routine 12/28/2022 9:56 AM EST Screening for prostate cancer PE (physical exam), annual Neoplasm of uncertain behavior of skin from Last 3 Months or Most Recently Relevant to Health Maintenance Results * (ABNORMAL) Lipid panel (12/28/2022 9:56 AM EST) HDL 77 mg/dL [facility] Comment: Interpretation <40 mg/dL: Low HDL cholesterol (major risk factor for CHD) Greater than or equal to 60 mg/dL: High HDL cholesterol ( negative risk factor for CHD) HDL - cholesterol is affected by a number of factors, e.g. smoking, excerise, hormones, sex and age. CHOLESTEROL 203 0 - 240 mg/dL [facility] TRIGLYCERIDES 94 30 - 160 mg/dL [facility] LDL 107 50 - 129 mg/dL [facility] Comment: LDL levels in terms of risk for coronary heart disease: <100 mg/dL: Optimal 100-129 mg/dL: Near or above optimal 130-159 mg/dL: Borderline high 160-189 mg/dL: High >190 mg/dL: Very High CARDIAC RISK RATIO 2.6(L) 3.4 - 5.0 [facility] Blood 12/28/2022 9:56 AM EST 12/28/2022 10:04 AM EST us Ricci Everett MD LAB BLOOD BKR ORDERABLE S Final Result [facility] [address] [place] [address] from Last 3 Months or Most Recently Relevant to Health Maintenance Insurance [facility] (Work) [address] [place] [address] Care Teams Corporate Sales Representative Relationship Specialty Start Date End Date Ricci Everett MD [address] [place] [address] [place] [address] PCP - General 10/12/21 Additional Source Comments The information contained in this document represents components of the legal health record. It is not the complete legal health record.[facility]
--- OUTSIDE RECORDS SUMMARY | 2025-08-23 16:38 | XMS_ITS | Clinical Summary ---
Author Organization [facility] [address] [facility] Address [address] [place] [address] Phone Care Team Providers Care Beater Room Helper Name Role Phone Ricci Everett MD Primary Care Provider [phone] Allergies No known active allergies Medications albuterol HFA (PROVENTIL HFA;VENTOLIN HFA) 108 (90 Base) MCG/ACT inhaler Inhale 2 Puffs into the lungs every 4 hours as needed Active hydrOXYzine pamoate (VISTARIL) 25 mg capsule Take 1 capsule (25 mg total) by mouth every 8 (eight) hours if needed for anxiety for up to 10 days. 30 capsule 4 Active oxyCODONE (ROXICODONE) 5 mg immediate release tablet Take 1-2 tablets (5-10 mg total) by mouth every 4 (four) hours if needed (pain). Take 1 pill for moderate pain (scale 4-6) or take 2 pills for severe pain (scaled 7-10) Max Daily Amount: 60 mg 30 tablet 4 Active Additional Information Patient not taking.Reported on 10/08/2024 sertraline (ZOLOFT) 25 mg tablet Take 1 tablet (25 mg total) by mouth at bedtime. 30 each 4 Active acetaminophen (TYLENOL) 325 mg suppository Insert 1 suppository (325 mg total) into the rectum every 6 (six) hours if needed for mild pain. Before bedtime Active ALPRAZolam (NIRAVAM) 0.5 mg dispersible tablet Dissolve 1 tablet (0.5 mg total) on top of the tongue at bedtime as needed for anxiety. Pt had old RX - taking at night to help sleep - pt states Max Daily Amount: 0.5 mg Active Active Problems Problem Noted Date Diagnosed Date Pure hypercholesterolemia, unspecified History of colonic polyps 09/30/2024 Hepatic steatosis 09/30/2024 Generalized anxiety disorder 09/30/2024 Chronic major depressive dis order, recurrent episode (CMS/HCC V24) 09/30/2024 Pulmonary nodule, left 06/08/2024 Assessment & Plan (10/12/2024 2:06 PM EST): Mr. Knight is a 54 y.o. 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 As of today his cultures remain negative with AFB still pending which he should follow-up with pulmonology for which we will refer to. He was also educated that we will follow-up with a chest CT scan in 12 months time as he does have a remaining 4 mm pulmonary nodule in the right lower lobe as well as some other subsub-4 mm nodules scattered throughout. His next chest CT scan will be due in 12 months time which will be September 2025 and have a visit at the thoracic surgery department thereafter to discuss results. Assessment & Plan (08/26/2024 4:06 PM EST): 53-year-old man with stable left lower lobe pulmonary nodule that has a rounded border. Again had a discussion with him about the findings on his CT scans as described in the HPI. We also talked about pulmonary nodules in general and how their size, shape, and change management consultant time affect our level of suspicion for malignancy. I do think that this nodule based on these features is either a benign hamartoma or a carcinoid tumor. We discussed these 2 entities in detail which he seemed understand. I also talked about options of continued observation versus needle biopsy versus surgical wedge resection with possible lobectomy if it turned out to be non- small cell lung cancer (which I think is unlikely) and lymph node dissection with clear margins if it turned out to be carcinoid. After considering the risks and benefits of each of these options he wants to proceed with the surgical option. 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 September 29 is the date that we tentatively gave him for surgery. All questions were answered. Posterior rhinorrhea 06/08/2024 Chronic sore throat 06/08/2024 Acute fungal otitis externa 06/08/2024 Abnormal auditory perception 06/08/2024 Abnormal findings on diagnos tic imaging of skull and head, not elsewhere classified 06/08/2024 Neoplasm of uncertain behavior of skin 3 Overview (09/30/2024): Skin Neoplasm Of Uncertain Behavior Benign neoplasm of skin of trunk 07/23/2013 Overview (09/30/2024): Benign Skin Neoplasm Of The Trunk Actinic keratosis 07/23/2013 Overview (09/30/2024): Actinic Keratosis Surgical History Surgery Date Site/Laterality Comments OTHER SURGICAL HISTORY Right PROCEDURE: HISTORICAL EAR SURGERY; COMMENT: Ear Drum OTHER SURGICAL HISTORY PROCEDURE: HISTORY OTHER; COMMENT: Urology Procedure Medical History Medical History Date Comments Anxiety Depression Allergic rhinitis Family History Medical History Relation Name Comments Other: bypass Father Prostate cancer Father Other: skin cancer Mother Stroke Mother Relation Name Status Comments Father Mother Social History Tobacco Use Types Packs/Day Years Used Date Smoking Tobacco: Never Smokeless Tobacco: Never Tobacco Cessation:Counseling Given: Not Answered Alcohol Use Standard Drinks/Week Comments Yes 10 (1 standard drink = 0.6 oz pu re alcohol) 1-2 aday Housing Instability Answer Date Recorde d Are you worried that in the next 2 months you may not have stable housing? Yes 09/29/2024 Food Access & Nutrition Answer Date Rec orded Do you have access to a vari ety of food including fruits and vegetables? Yes 09/29/2024 Health Literacy Answer Date Recorded How often do you need to hav e someone help you when you read instructions, pamphlets, or other written material from your doctor or pharmacy? Never 09/29/2024 Caregiver: How often do you need to have someone help you when you read instructions, pamphlets, or other written material from your doctor or pharmacy? Not on file 09/29/2024 Financial Risk Answer Date Recorded How hard is it for you to pa y for the very basics like food, housing, medical care, and air conditioning / heating? Somewhat hard 09/29/2024 Transportation Answer Date Recorded Has the lack of transportati on kept you from meetings, work, or from getting things needed for daily living? No Has the lack of transportati on kept you from medical appointments or from getting medications? No 09/29/2024 Social Isolation Answer Date Recorded How often do you feel lonely or isolated from th ose around you? Never 09/29/2024 Food Risk Answer Date Recorded Within the past 12 months we worried whether our food would run out before we got money to buy more. Never true 09/29/2024 Within the past 12 months th e food we bought just didn't last and we didn't have money to get more. Never true 09/29/2024 Dependent Care Answer Date Recorded Do you need help finding or paying for care for your loved ones. For example, early childhood aide classroom or elderly care for an older adult? No 09/29/2024 Education Answer Date Recorded Do you think completing more education or training, like finishing a GED, going to college, or learning a trade, would be helpful for you? No 09/29/2024 Employment and Income Answer Date Recor ded During the last four weeks, have you been actively looking for work? Yes 09/29/2024 Living Situation Answer Date Recorded What is your living situation? Unrecognized valu e 09/29/2024 Interpersonal Safety Answer Date Record ed Physical Abuse Unrecognized value 09/29/2024 Verbal Abuse Unrecognized value 09/29/2024 Sex and Gender Information Value Date Recorded Sex Assigned at Male 09/29/2024 9:25 AM EST Legal Sex Male 1:21 AM EST Gender Identity Male 09/29/2024 9:25 AM EST Sexual Orientation Straight 09/29/2024 9: 25 AM EST Obstetrics History Last Filed Vital Signs Vital Sign Reading Time Taken Comments Blood Pressure 122/82 10/08/2024 10:29 AM EST Pulse 78 10/08/2024 10:29 AM EST Temperature 36.5 C (97.7 F) 10/08/2024 10:29 AM EST Respiratory Rate 17 10/01/2024 11:44 AM EST Oxygen Saturation 97% 10/08/2024 10:29 AM EST Inhaled Oxygen Concentration - - Weight 77.2 kg (170 lb 4.8 oz) 10/08/2024 10:29 AM EST Height 180.3 cm (5' 11 ) 10/08/2024 10:29 AM EST Body Mass Index 23.75 10/08/2024 10:29 AM EST Plan of Treatment Health Maintenance Due Date Last Done Comments Colorectal Cancer Screening: Colonoscopy 1969 Hepatitis A Vaccines (1 of 2 - Risk 2-dose series) 1988 Hepatitis B Vaccines (1 of 3 - 19+ 3-dose series) 1988 Pneumococcal Vaccine: 50+ Years (2 of 2 - PCV) 2019 07/30/2010 RSV Immunization Adult Patients (1 - Risk 50-74 years 1-dose series) 2019 Zoster Vaccines (2 of 2) 08/28/2020 07/03/2020 HIV Screening 07/21/2024 Hepatitis C Screening 07/21/2024 Depression Screening 10/20/2024 COVID-19 Vaccine (7 - Moderna risk season) 2025 06/30/2024, 09/04/2023, 07/25/2022, Additional history exists Influenza Vaccine (#1) 2025 , 06/30/2024, 09/04/2023, Additional history exists Social Influencers of Health Screening 09/29/2025 09/29/2024 Cholesterol Screening (Lipid Panel) 12/29/2027 12/28/2022 DTaP,Tdap,and Td Vaccines (2 - Td or Tdap) 07/11/2032 07/11/2022 HIB Vaccines Aged Out No longer eligi ble based on patient's age to complete this topic HPV Vaccines Aged Out No longer eligi ble based on patient's age to complete this topic IPV Vaccines Aged Out No longer eligi ble based on patient's age to complete this topic MMR Vaccines Aged Out No longer eligi ble based on patient's age to complete this topic Meningococcal ACWY Vaccine Aged Out N o longer eligible based on patient's age to complete this topic Meningococcal B Vaccine Aged Out No l onger eligible based on patient's age to complete this topic RSV Immunization Patients Under 20 months Aged Out No longer eligible based on patient's age to complete this topic Varicella Vaccines Aged Out No longer eligible based on patient's age to complete this topic Medical Devices Implanted Type Area Electric Switch Tester Device Identifier Shelf Expiration Date Model / Serial / Lot Drsg Hemostat 4x8in Abs Ster Surgicel - Sn/A - [id number] Implanted:Qty: 1 on 09/29/2024 by Betty [facility] MD at [facility] Hemostasis Left: Lung [employer] 1952 / N/A / N/A Insurance Advance Directives * Full Code - Default (Latest Code Status on File) Date Activated Date Inactivated Comments 09/29/2024 3:16 PM 10/01/2024 4:01 PM This is or ana is used when code status has not been discussed with the patient, or code status is otherwise unknown/unconfirmed To update the patient's code status, place a code status order. Do not modify or discontinue any currently active code status orders. Healthcare Agents on File Name Relationship Healthcare Agent [facility] Communication Steven Knight [facility] Health Care Agent Care Teams Beater Room Helper Relationship Specialty Start Date End Date Ricci Everett MD [address] [place] [address] Dr Neida MA [facility] - General 05/31/24
--- OUTSIDE RECORDS SUMMARY | 2025-08-23 16:38 | XMS_ITS | Patient Health Record ---
Author Organization Jeramy Palafox III, MD Address [address] [place] [address] [place] [address] Care Team Providers Care Certified Dialysis Technician Name Role Phone Ricci Everett MD Primary Care Provider Dr. Jeramy Falcon III Unavailable [phone] Allergies Allergen (clinical drug ingredient) Drug/Non Drug Allergy documented on EMR Reaction Allergy Type Onset Date Status No Known Drug Allergy Unknown Drug Allergy Active Reason For Referral No Information Medications Medication SIG (Take, Route, Frequency, Duration) [...] Problem Status W/U Status Risk Notes Problem 07770166 Generalized anxiety disorder (F41.1) Active confirmed We have discussed how to cope with the diagnosis of a pulmonary nodule. He found the visit to thoracic surgery reassuring. Problem 177773502 Personal history of colonic polyps (Z86.010) Active confirmed Problem 357779544 Pure hypercholester olemia, unspecified (E78.00) Active confirmed Problem 252952361 Pulmonary nodule, left (R91.1) Active confirmed His July [address] scan showed stability. Observation will continue. Problem 110675998 Hepatic steatosis (K76.0) Active confirmed This was a diagnosis made by a CT scan. He is currently clinically asymptomatic. Problem 07656251 Chronic major depressive disorder, recurrent episode (F33.9) Active confirmed He is coping well with the stress of this new problem. No change in his therapy was made. Encounters Encounter Location Date Provider Diagnosis Jeramy Palafox III, MD [address] [place] [address] DR LANDRY [address] [place] [id number] 12/30/2024 Jeramy Palafox Plan Of Treatment Pending Test Test Name Order Date PET CT fusion skull to thigh 04/27/2024 Insurance Providers Payer Name Payer Address Payer Phone Subscriber Number Group Number Insured Name Patient Relationship to Insured Coverage Start Date Coverage End Date [facility] [address] [place], [place] [id number] Rock Knight Self - patient is the insured Medical (General) History Medical History History ICD Code Chronic bronchitis Right ear infecti Hyperlipidemia Surgical History Surgery Date(Month/Year) Ear drum replacement, Right
--- OUTSIDE RECORDS SUMMARY | 2025-08-23 16:38 | XMS_ITS | Patient Health Record ---
Author Organization [facility] Address [address] [place] [address] Care Team Providers Care Cart Driver Name Role Phone Marguerite (RETIRED) Ricci GARCIA Primary Care Provide Jorge Keen Jr Unavailable [phone] Reason For Referral No Information Medications Medication SIG (Take, Route, Frequency, Duration) Notes Start Date End Date Status MiraLax (colon prep) 8.3 ounce ((238) grams mixed with Gatorade or Crystal Light orally begin at 5:00 p.m. the day before the procedure; Duration: 1 day 05/17/2020 Active Vitamin C Active Atorvastatin Calcium 10 MG 1 tablet Oral ly Once a day Active Immunizations Vaccine Route Administration Date Status Comme nts Influenza Unknown 06/20/2019 Administered Social History Tobacco Use: Social History Observation Description Date Details (start date - stop date) Never Smoker NA - NA Tobacco Use/Smoking Question Answer Notes Patient is a nonsmoker Alcohol Screen Question Answer Notes Did you have a drink contain ing alcohol in the past year? Yes How often did you have a dri nk containing alcohol in the past year? 4 or more times a week (4 points) How many drinks did you have on a typical day when you were drinking in the past year? 3 or 4 drinks (1 point) How often did you have 6 or more drinks on one occasion in the past year? Never (0 point) Points 5 Interpretation Positive Problems Problem Type SNOMED Code ICD Code Onset Dates Problem Status W/U Status Risk Notes Problem Colon cancer screening (295013154) Colon cancer screening (Z12.11) Active confirmed Problem Pre-procedure evaluation check (305051365) Encounter for other preprocedural examination (Z01.818) Active confirmed Plan Of Treatment Future Test Test Name Order Date COLONOSCOPY 05/17/2020 Next Appt Details Provider Name:Jorge Herrmann Darian wagner Jr, 10/06/2025 01:55:00 PM, [address] [facility], [address], [place], [address], Insurance Providers Payer Name Payer Address Payer Phone Subscriber Number Group Number Insured Name Patient Relationship to Insured Coverage Start Date Coverage End Date [facility] [employer] [address] [place] [address] [id number] NIGEL CHRISTOPHER Self - patient is the insured Medical (General) History Medical History History ICD Code elevated cholesterol Surgical History Surgery Date(Month/Year) ear reconstruction left eardrum ruptured 2008 tonsillectomy
== END 2025-08-23 14:27 | disposition home or self-care (01) ==
LOC: HO.HMCHD 13:37
PROVIDERS: PCP Student in an Organized Health Care Education/Training Program; Visit Provider Student in an Organized Health Care Education/Training Program
DX: I10 Essential (primary) hypertension (principal); W57.XXXA Bitten or stung by nonvenomous insect and other nonvenomous arthropods, initial encounter; L98.9 Disorder of the skin and subcutaneous tissue, unspecified

== ENCOUNTER 2025-08-23 13:36 | Outpatient (REF) | payer BC, SELFPAY ==
[2025-08-23 15:29] LABS: Total Hemoglobin (HGBA1C) 3844.7798 umol/L
[2025-08-23 15:34] LABS: Alanine Aminotransferase 39 U/L (0-40); Albumin Level 4.8 g/dL (3.5-5.0); Alkaline Phosphatase 75 U/L (39-117); Anion Gap 12 (12-20); Aspartate Amino Transferase 27 U/L (5-37); Blood Urea Nitrogen 13 mg/dL (9-16); Calcium 9.2 mg/dL (8.4-10.2); Carbon Dioxide 24 mmol/L (22-29); Chloride 106 mmol/L (96-108); Cholesterol 213 mg/dL (<200); Estimated Glomerular Filt Rate > 60; HDL Cholesterol 66 mg/dL (>40); Potassium 4.0 mmol/L (3.3-5.1); Sodium 138 mmol/L (135-145); Total Protein 7.2 g/dL (6.5-8.0); Triglycerides 94 mg/dL (<150)
--- OUTSIDE RECORDS SUMMARY | 2025-08-23 17:26 | XMS_ITS | Data Portability ---
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 He had a small amount of fungal debri deep against the right TM which was removed with suction. I have recommended that he use vinegar drops weekly. With respect to his chronic sore throat FOL was normal and the PET uptake was symmetric. We have recommended that he start an allergy regimen. Flonase was prescribed to his pharmacy. We also advised him to take claritin, zyrtec or tom daily for the next few months. Encouraged him to increase his fluid intake and perform salt water gargles. He will follow up for repeat FOL in a few months. We may also repeat audiogram at that time. Patient was seen by Dr. Mcgee and FOL was performed by Dr. Mcgee. [email or web address] Not available 06/08/2024 13:36:34 09/07/2024 09/07/2024 Repeat laryngoscopy remains unremarkable, and thankfully sore throat is also improved. Previous audiometric testing may have been affected by fungal debris noted and removed at last visit. Follow up with repeat audiogram in a year. Follow up as needed in the interim for any new or worsening symptoms. [email or web address] Not available 09/12/2024 09:31:19 Plan of Treatment Reminders Order Date Submit Date Provider Last Modified By Organization Details Last Modified Time Details Appointments None recorded. Lab None recorded. Referral None recorded. Procedures None recorded. Surgeries None recorded. Imaging None recorded. Medication Orders Flonase Allergy Relief 50 mcg/actua tion nasal spray,becka pension [facility] #[id number], [address] [place], [address], 4 15:50:03 Patient TargetsNo targets recorded. Patient InstructionsNo instructions recorded. Reason for Referral None Reported. Results Created Date Observation Date Name Description Value Unit Range Abnormal Flag Note LastModifiedBy Organization Detail LastModifiedTime 06/08/20 24 04/08/2024 audio gram No observ ation record ed. [email or web address] Available 2023 11:06:34 06/10/20 24 05/06/2024 PET, skull base to mid-t high No observ ation record ed. [email or web address] Available 2023 16:17:30 06/14/20 24 04/09/2024 CT, chest , w/ contr ast No observ ation record ed. [email or web address] Available 2023 11:31:30 09/28/20 24 04/09/2024 CT, chest , w/ contr ast No observ ation record ed. [email or web address] Not Available 09/30 11:35:27 Result Notes None recorded. Problems Name Problem SNOMED Code Status Onset Date Resolution Date Notes Provider Name and Address Organization Details Recorded Time Chronic sore throat 935563311 Active Kedar naylor [place] - [facility] 4 11:39:29 Acute fungal otitis externa 564188779 Active Kedar naylor [place] - [facility] 4 11:58:51 Abnormal auditory perception 94367992 Active 024 Kedar naylor [place] - [facility] 4 11:59:04 Nodule of lung 596654288 Active Kedar naylor [place] - [facility] 4 11:59:13 Posterior rhinorrhea 67800523 Active 024 Kedar naylor [place] - [facility] 4 12:10:23 Abnormal findings on diagnostic imaging of skull and head 147452837 Active 024 Kedar Locke [facility] [place] - [facility] 4 13:26:46 Problem Notes None recorded. Procedures Surgical History Date Name Laterality Status Provider Name and Address Organization Details Recorded Time 09/07/20 Fiberoptic Laryngoscopy (Comprehensive) completed JACKSON MCGEE MD [address] [place] [address],[address], [address], [facility] 09/12/2024 09:29:43 06/08/20 Fiberoptic Laryngoscopy (Comprehensive) completed JACKSON MCGEE MD [address] [place] [address],[place] [address], [place], [address], [facility] 06/08/2024 12:59:05 Imaging Results None recorded. Procedure Notes None recorded. Medical Equipment None Reported. Allergies No known drug allergies Medications Name Sig Start Date Stop Date Status Note LastModified by Organization Details LastModified Time neomycin-po lymyxin-hyd rocort 3.5 mg/mL-10,00 0 unit/mL-1 % ear solution APPLY 3 DROP(S) IN RIGHT EAR THREE TIMES A DAY 06/08 completed Not Available Not Available Not Available doxycycline hyclate 100 mg capsule TAKE 1 CAPSULE BY MOUTH TWICE A DAY 09/07 completed Not Available Not Available Not Available azithromyci n 250 mg tablet TAKE 1 TABLET BY MOUTH EVERY DAY 06/08 completed Not Available Not Available Not Available prednisone 20 mg tablet TAKE 1 TABLET BY MOUTH TWICE A DAY FOR 7 DAYS 09/07 completed Not Available Not Available Not Available cefadroxil 500 mg capsule TAKE 1 CAPSULE BY MOUTH TWICE A DAY FOR 7 DAYS 06/08 completed Not Available Not Available Not Available albuterol sulfate HFA 90 mcg/actuati on aerosol inhaler TAKE 2 PUFF(S) BY MOUTH FOUR TIMES A DAY NEEDED 09/07 completed Not Available Not Available Not Available Flonase Allergy Relief 50 mcg/actuati on nasal spray,suspe nsion [place] 2 sprays every day by intranasa l route for 30 days. 09/07 completed Not Available Not Available Not Available Vitals Date Recorded Body height Body mass index (BMI) Body weight Provider Name and Address Organization Details Last Updated DateTime 09/07/2024 181.61 cm 24.2 kg/m2 27145.26 g Thais Pa [place] - [facility] 09/07/2024 15:49:46 Social History None recorded. Functional Status None recorded. Mental Status None recorded. Family History Nothing Reported. Medical History No medical history recorded. Past Encounters Encounter ID Performer Location Encounter Start Date Encounter Closed Date Diagnosis/Indication Diagnosis SNOMED-CT Code Diagnosis ICD10 Code Diagnosis IMO Codes Diagnosis Note [id number] KEDAR LOCKE PA-C [facility] on [address] [place] [id number] 06/08/2024 09:49:42 06/08/2024 12:00:09 Chronic sore throat 552915150 J31.2 Acute macario al otitis externa 589962591 B36.9 Abnormal a uditory perception 38373710 H93.299 Nodule of lung 262656545 R91.1 Posterior rhinorrhea 758 81916 R09.82 Abnormal f indings on diagnostic imaging of skull and head 766748483 R93.0 [id number] JACKSON MCGEE MD [facility] on [address] [place] [id number] 09/07/2024 15:21:59 09/07/2024 16:28:44 Abnormal findings on diagnostic imaging of skull and head 116538448 R93.0 Chronic sore throat 2754 27211 J31.2 Health Concerns Section Related Observation LastModified by Organization Detai ls LastModified Time None Recorded Concern Status LastModified by Organization Details LastModified Time None Recorded Advance Directives Directive None Recorded Payers Insurance Date Sequence Insurance Name Policy Number Policy Whiting Covered Member ID Whiting Member ID Guarantor Name 02/04/2025 1 [place] [facility] [place] [place] [id number] Rock Knight [id number] Rock Knight 09/02/2024 1 [place] [facility] [place] [place] [id number] Rock Knight [id number] Rock Knight 09/02/2024 1 [place] [facility] [place] [place] Rock Knight [id number] Rock Knight 09/16/2024 1 [facility] [facility] [place] [id number] Rock Knight [id number] Rock Knight Notes Date Note Type Note Provider Name and Address Organization Details Recorded Time 06/08/2024 text/html ROS as noted in the HPI 53 year old male presents for evaluation of right ear pain and fullness and follow up of an audiogram that he had at [facility] 04/08/24. Patient reports right earache and fullness for the majority of the summer. He has had issues with right ear infections in the past and he had a tympanoplasty in the right ear in 2013 in [place]. He reports occasional tinnitus in both ears. He denies otorrhea, dizziness, noise exposure. His mother had hearing loss in her 70s. He also presents for evaluation of a persistent sore throat which started in the spring. He thought it may be seasonal allergies. He had associated heavy coughing and mucus production. He has felt run down and overall fatigued. He had one episode of hemoptysis. This prompted chest xray, chest CT and ultimately PET scan. On CT there is a 1.5 cm x 1.5 cm left lower lung nodule. Dr. Olea thoracic surgeon at [facility] recommended excision of the pulmonary nodule which is scheduled for September after repeat CT chest in July. Dr. Jeramy Palafox oncologist recommended evaluation here due to PET scan with mild FDG activity in the posterior tongue/vallecula region probably related to lingual tonsillar activity. Patient is status post tonsillectomy many years ago. He does not take any allergy meds or nasal sprays. JACKSON MCGEE MD [address] [place] [address], [phone], [place] - [facility] 06/15/2024 08:40:18 09/07/2024 text/html ROS as noted in the HPI Going to have lung surgery on the left. Sore throat much better. Had tympanoplasty on the right several years ago PV: 53 year old male presents for evaluation of right ear pain and fullness and follow up of an audiogram that he had at [facility] 04/08/24. Patient reports right earache and fullness for the majority of the summer. He has had issues with right ear infections in the past and he had a tympanoplasty in the right ear in 2014 in [place]. He reports occasional tinnitus in both ears. He denies otorrhea, dizziness, noise exposure. His mother had hearing loss in her 70s. He also presents for evaluation of a persistent sore throat which started in the spring. He thought it may be seasonal allergies. He had associated heavy coughing and mucus production. He has felt run down and overall fatigued. He had one episode of hemoptysis. This prompted chest xray, chest CT and ultimately PET scan. On CT there is a 1.5 cm x 1.5 cm left lower lung nodule. Dr. Olea thoracic surgeon at [facility] recommended excision of the pulmonary nodule which is scheduled for September after repeat CT chest in July. Dr. Jeramy Palafox oncologist recommended evaluation here due to PET scan with mild FDG activity in the posterior tongue/vallecula region probably related to lingual tonsillar activity. Patient is status post tonsillectomy many years ago. He does not take any allergy meds or nasal sprays. JACKSON MCGEE MD [address] [place] [address], [place], [address], [facility] - [facility] 09/12/2024 09:31:28
[2025-08-24 10:37] LABS: HBS Num1 64.82 mIU/mL (0-7.99); HBc Num1 0.05 S/CO (0.00-0.79); HBsAGNum1 0.32 S/CO (0.00-0.99); HIV Num 1 0.06 S/CO (0.00-0.99); Hepatitis A Antibody IgM 0.21 Index (0-0.79); Hepatitis B Surface Antigen Negative (Negative); ~HepC Num1 0.07 S/CO (0.00-0.79); ~Hepatitis A Antibody IgM Nonreactive (Nonreactive); ~Hepatitis B Surface Antibody REACTIVE (Nonreactive); ~Hepatitis C Antibody Nonreactive (Nonreactive)
[2025-08-24 10:45] LABS: Syphilis Screen Nonreactive (Nonreactive)
== END 2025-08-23 13:37 | disposition home or self-care (01) ==
LOC: HO.LAB 13:36
PROVIDERS: PCP Student in an Organized Health Care Education/Training Program; Visit Provider Student in an Organized Health Care Education/Training Program
DX: I10 Essential (primary) hypertension (principal); L98.9 Disorder of the skin and subcutaneous tissue, unspecified; T14.8XXA Other injury of unspecified body region, initial encounter; W57.XXXA Bitten or stung by nonvenomous insect and other nonvenomous arthropods, initial encounter; Y93.9 Activity, unspecified; Y92.9 Unspecified place or not applicable; Y99.9 Unspecified external cause status; Z13.1 Encounter for screening for diabetes mellitus; Z76.89 Persons encountering health services in other specified circumstances
CPT/HCPCS: 36415; 80053; 80061; 82306; 83036; 84443; 85025; 86704; 86706; 86709; 86780; 86803; 87340; 87389; 96127

== ENCOUNTER 2025-09-14 11:04 | Outpatient (AMB) | payer BC, SELFPAY ==
[2025-09-14 11:08] VITALS: BP 140/86; PULSE 77; TEMP 36.9; O2SAT 98; BMI 26.6
--- NOTE | 2025-09-14 11:08 | MHC.PC.OV ---
Vital Signs 09/14/25 11:08 Height 5 ft 9.29 in Weight 182 lb BMI 26.6 BP 140/86 H Pulse 77 Pulse Source Pulse Oximeter Temp 98.5 F Temp Source Temporal Artery Scan Pulse Oximetry (%) 98 Oxygen Delivery Method Room Air Intake Visit Reasons: 3 week f/u- Bp med and referral question Equipment Scheduler Required: No Accompanied by: Self / Same As Patient Allergies No Known Allergies Allergy (Verified 09/14/25 11:08) Medication List - Last Reconciled 09/14/25 by Melchor Mcdonough MD No Known Home Meds Tobacco use date assessed: 09/14/25 Dental Screening Dental Screen Date: 09/14/25 Did you have a dental visit in the last 12 months?: Yes Did you have a dental problem in the last 6 months where you did not have access to dental care?: No HPI HPI Comments History of Present Illness Details History of Present Illness The patient is a 54 year old individual presenting for follow up on elevated blood pressures. The patient reports that blood pressures have remained elevated in the 150s for the last three weeks. Recent lab work revealed an LDL of 129 mg/dL and total cholesterol of 213 mg/dL. Additionally, the serum vitamin D level was 28.5 ng/mL, indicating a deficiency, and the hemoglobin A1c was stable at 5.3%. The patient reports feeling well with no new complaints apart from difficulty sleeping, which is attributed to a quarrel with neighbors. The patient saw a commercial finance manager since the last visit and underwent a biopsy of a skin lesion, which was reported as benign. Medical History: - Hypertension - Hypercholesterolemia - Vitamin D deficiency - Insomnia - History of a benign skin lesion, confirmed by recent biopsy Surgical History: - Recent skin biopsy of a lesion, reported as benign. Diagnostic Results: - LDL cholesterol: 129 mg/dL - Total cholesterol: 213 mg/dL - Hemoglobin A1c: 5.3% - Serum vitamin D: 28.5 ng/mL - Dermatology biopsy: Benign Social History - Reports difficulty sleeping due to a quarrel with neighbors. [facility] Medical History (Updated 09/14/25 @ 11:35 by Melchor Mcdonough MD) Insomnia Vitamin D deficiency Hyperlipidemia Skin lesion Tick bite Hypertension Surgical History History of colonoscopy (~06/09/20) Social History (Reviewed 09/14/25 @ 11:09 by CHRISTINA Peng Housing: House Patient Tobacco Use Status: Never used Tobacco e-Cigarette/Vaping Use: Never Used service: No Current occupational status: employed Current occupation: [employer] Cognitive needs: No Hearing needs: No Vision needs: Yes (reading glasses) Questionnaire Thrive Questionnaire Date Thrive assessed: 08/23/25 GINA-7 AMB Questionnaire GINA-7 Date GINA - 7 assessed: 08/23/25 Source: Developed by Drs. Jeramy Obrien, Sybil Purcell, Jareth Varner and colleagues, with an educational byron from [employer]. Review of Systems Narrative Review of Systems - General: Reports feeling well. - Neurological: Reports difficulty sleeping. - Integumentary: Reports a recent skin biopsy that was benign. All systems reviewed & are unremarkable except as reviewed in HPI and above Physical exam (Primary Care) Vital Signs: Last Vital Signs Temp 98.5 F 09/14/25 11:08 Pulse 77 09/14/25 11:08 BP 140/86 H 09/14/25 11:08 Pulse Ox 98 09/14/25 11:08 Oxygen Delivery Method Room Air 09/14/25 11:08 BMI result Body Mass Index 26.6 Tobacco/Smoking Status: Tobacco use Status Tobacco use date assessed 09/14/25 09/14/25 11:09 Patient Tobacco Use Status Never used Tobacco 09/14/25 11:09 e-Cigarette/Vaping Use Never Used 09/14/25 11:09 Thrive Assessment: Date of Thrive Assessment Date Thrive assessed 08/23/25 09/14/25 11:09 Narrative Physical Exam General: +Alert and oriented, Well nourished, No acute distress. Eye: Pupils are equal, round and reactive to light, Intact accommodation, Extraocular movements are intact, Normal conjunctiva, Vision unchanged. HENT: Normocephalic, Atraumatic, Tympanic membranes are clear, Normal hearing, Oral mucosa is moist, No pharyngeal erythema, Ear canals patent. Respiratory: Lungs CTA bilaterally, No wheeze, Respirations are non-labored. Cardiovascular: Regular rate, Regular rhythm, S1 auscultated, S2 auscultated, No murmur, Good pulses equal in all extremities, Normal peripheral perfusion, No edema. Gastrointestinal: Soft, Non-tender, Non-distended, Normal bowel sounds, No organomegaly. Musculoskeletal: Normal range of motion, Normal strength, No tenderness, No swelling, No deformity, Normal gait. Integumentary: Warm, Dry, [place], Intact. Neurologic: Alert, Oriented, Normal sensory, Normal motor function, No focal defects, Cranial Nerves II-XII are grossly intact, Normal deep tendon reflexes. Psychiatric: Cooperative, Appropriate mood & affect, Normal judgment, Reports difficulty sleeping due to neighbor quarrel. Coding Level of Care Code Est Pt Level 4 (32837) Complex visit Add On G2211 Diagnoses Hypertension, unspecified type I10 Hypertension type: unspecified Other hyperlipidemia E78.49 Hyperlipidemia type: other hyperlipidemia Vitamin D deficiency E55.9 Other insomnia G47.09 Insomnia type: other insomnia Assessment & Plan Assessment & Plan (1) Hypertension: Comment: - Blood pressure remains elevated with readings in the 150s for the past three weeks and over 140/86 mmHg today. - Will initiate amlodipine 5 mg daily. Code(s): I10 - Essential (primary) hypertension Category: Medical Qualifiers: Hypertension type: unspecified Qualified Code(s): I10 - Essential (primary) hypertension (2) Hyperlipidemia: Comment: - LDL is elevated at 129 mg/dL and total cholesterol is 213 mg/dL. - Will start atorvastatin 20 mg daily. Code(s): E78.5 - Hyperlipidemia, unspecified Category: Medical Qualifiers: Hyperlipidemia type: other hyperlipidemia Qualified Code(s): E78.49 - Other hyperlipidemia (3) Vitamin D deficiency: Comment: - Serum vitamin D level is 28.5 ng/mL. - Will treat with vitamin D 50,000 IU weekly for 12 weeks. Code(s): E55.9 - Vitamin D deficiency, unspecified Category: Medical (4) Insomnia: Comment: - The patient reports difficulty sleeping secondary to a conflict with neighbors. - Advised the patient on the use of [id number] melatonin, however, the patient declined to discuss this further. Code(s): G47.00 - Insomnia, unspecified Category: Medical Qualifiers: Insomnia type: other insomnia Qualified Code(s): G47.09 - Other insomnia Plan: Health Maintenance: - The patient's hemoglobin A1c is stable at 5.3%. - The patient recently had a skin lesion biopsied by a commercial finance manager, which was found to be benign. Plan - Start taking amlodipine 5 mg every day for high blood pressure. - Start taking atorvastatin 20 mg daily for high cholesterol. - Take one pill of vitamin D 50,000 IU every week for 12 weeks to treat your low vitamin D level. - If you have trouble sleeping, you may use [id number] melatonin. Medications: New cholecalciferol (vitamin D3) 1,250 mcg PO QWEEK 12 tabs 0RF 12 weeks E55.9 - Vitamin D deficiency, unspecified atorvastatin (Lipitor) 20 mg PO BEDTIME 90 tabs 0RF amlodipine 5 mg PO DAILY 90 tabs 0RF
--- OUTSIDE RECORDS SUMMARY | 2025-09-14 13:47 | XMS_ITS | Clinical Summary ---
Author Organization [facility] [address] [facility] Address [address] [place] [address] Phone Care Team Providers Care Check Writer Name Role Phone Ricci Everett MD Primary Care Provider [phone] Allergies No known active allergies Medications albuterol [...] general and how their size, shape, and exchange operator time affect our level of suspicion for [...] plan this for just prior to his Jean-Pierre break. September 29 is the date that [...] care for your loved ones. For example, child welfare counselor or elderly care for an older adult? [...] 10/08/2024 10:29 AM EST Plan of Treatment Upcoming Encounters Date Type Department Care Team (Late st Contact Info) Description 10/11/2025 5:00 PM EST Appointment [facility] CT Scan [address] [place] [address] 10/19/2025 9:15 AM EST Office Visit Thoracic Surgery - [place] [address] [facility] [address] [place] [address] Joe Rodriguez, PA [address] [place] [address] Health Maintenance Due Date Last Done Comments Colorectal Cancer Screening: Colonoscopy 1969 Hepatitis B Vaccines (1 of 3 - 19+ 3-dose series) 1988 Pneumococcal Vaccine: 50+ Years (2 of 2 - PCV) 2019 07/30/2010 Zoster Vaccines (2 of 2) 08/28/2020 07/03/2020 HIV Screening 07/21/2024 Hepatitis C Screening 07/21/2024 Depression Screening 10/20/2024 COVID-19 Vaccine ( season) 2025 06/30/2024, 09/04/2023, 07/25/2022, Additional history exists Influenza Vaccine (#1) 2025 , 06/30/2024, 09/04/2023, Additional history exists Social Influencers of Health Screening 09/29/2025 09/29/2024 Cholesterol Screening (Lipid Panel) 12/29/2027 12/28/2022 DTaP,Tdap,and Td Vaccines (2 - Td or Tdap) 07/11/2032 07/11/2022 RSV Immunization Adult Patients (1 - 1-dose 75+ series) 2044 HIB Vaccines Aged Out No longer eligi ble based on patient's age to complete this topic HPV Vaccines Aged Out No longer eligi ble based on patient's age to complete this topic Hepatitis A Vaccines Aged Out No long er eligible based [...] this topic Medical Devices Implanted Type Area Chairman And Chief Executive Officer Device Identifier Shelf Expiration Date Model / Serial / Lot Drsg Hemostat 4x8in Abs Ster Surgicel - Sn/A - [id number] Implanted:Qty: 1 on 09/29/2024 by Betty Stark MD at [facility] Hemostasis Left: Lung [employer] 1952 [...] Agents on File Name Relationship Healthcare Agent [facility] Communication Steven Knight [facility] Agent Care Teams Check Writer Relationship Specialty Start Date End Date Ricci Everett MD [address] [place] [address] Dr Neida MA PCP - General 05/31/24
--- OUTSIDE RECORDS SUMMARY | 2025-09-14 13:47 | XMS_ITS | Data Portability ---
Author Organization [place] - [facility], Allergy Address [address] [place] [address] Care Team Providers Care Loom Checker Name Role Phone YANG SEXTON Primary Care Provider [phone] Assessment Encounter Date Assessment Date Assessment LastModified [...] Relief 50 mcg/actua tion nasal spray,becka pension [facility] #[id number], [address] [place], [address], 4 15:50:03 Patient TargetsNo targets recorded. Patient [...] Organization Details Recorded Time Chronic sore throat 660529636 Active Kedar naylor [place] - [facility] 4 11:39:29 Acute fungal otitis externa 445459039 Active Kedar naylor [place] - [facility] 4 11:58:51 Abnormal auditory perception 74174156 Active 024 Kedar naylor [place] - [facility] 4 11:59:04 Nodule of lung 957978689 Active Kedar naylor [place] - [facility] 4 11:59:13 Posterior rhinorrhea 99707198 Active 024 Kedar naylor [place] - [facility] 4 12:10:23 Abnormal findings on diagnostic imaging of skull and head 397202781 Active 024 Kedar Locke [facility] [place] - [facility] 4 13:26:46 Problem Notes None recorded. Procedures Surgical History Date Name Laterality Status Provider Name and Address Organization Details Recorded Time 09/07/20 Fiberoptic Laryngoscopy (Comprehensive) completed JACKSON MCGEE MD [address] [place] [address],[address], [address], [facility] 09/12/2024 09:29:43 06/08/20 Fiberoptic Laryngoscopy (Comprehensive) completed JACKSON MCGEE MD [address] [place] [address],[place] [address], [place], [address], [facility] 06/08/2024 12:59:05 Imaging Results None recorded. [...] Relief 50 mcg/actuati on nasal spray,suspe nsion [place] 2 sprays every day by intranasa l route for 30 days. 09/07 completed Not Available Not Available Not Available Vitals Date Recorded Body height Body mass index (BMI) Body weight Provider Name and Address Organization Details Last Updated DateTime 09/07/2024 181.61 cm 24.2 kg/m2 86271.26 g Thais Pa [place] - [facility] 09/07/2024 15:49:46 Social History None recorded. Functional Status None recorded. Mental Status None recorded. Family History Nothing Reported. Medical History No medical history recorded. Past Encounters Encounter ID Performer Location Encounter Start Date Encounter Closed Date Diagnosis/Indication Diagnosis SNOMED-CT Code Diagnosis ICD10 Code Diagnosis IMO Codes Diagnosis Note [id number] KEDAR LOCKE PA-C [facility] on [address] [place] [id number] 06/08/2024 09:49:42 06/08/2024 12:00:09 Chronic sore throat 627224368 J31.2 Acute macario al otitis externa 207676578 B36.9 Abnormal a uditory perception 29623584 H93.299 Nodule of lung 740414621 R91.1 Posterior rhinorrhea 758 98255 R09.82 Abnormal f indings on diagnostic imaging of skull and head 471954230 R93.0 [id number] JACKSON MCGEE MD [facility] on [address] [place] [phone] 09/07/2024 15:21:59 09/07/2024 16:28:44 Abnormal findings on diagnostic imaging of skull and head 195222761 R93.0 Chronic sore throat 2754 24606 J31.2 Health Concerns Section Related Observation LastModified by Organization Detai ls LastModified Time None Recorded Concern Status LastModified by Organization Details LastModified Time None Recorded Advance Directives Directive None Recorded Payers Insurance Date Sequence Insurance Name Policy Number Policy Whiting Covered Member ID Whiting Member ID Guarantor Name 02/04/2025 1 [place] [facility] [id number] Rock Knight [id number] Rock Knight 09/02/2024 1 [place] [facility] [id number] Rock Knight [id number] Rock Knight 09/02/2024 1 [place] [facility] Rock Knight [id number] Rock Knight 09/16/2024 1 [facility] [facility] [id number] Rock Knight [id number] Rock Knight Notes Date Note Type Note Provider Name and Address Organization Details Recorded Time 06/08/2024 text/html ROS as noted in the HPI 53 year old male presents for evaluation of right ear pain and fullness and follow up of an audiogram that he had at [facility] 04/08/24. Patient reports right earache and fullness for the majority of the summer. He has had issues with right ear infections in the past and he had a tympanoplasty in the right ear in 2013 in [place]. He reports occasional tinnitus in both ears. [...] lung nodule. Dr. Olea thoracic surgeon at [facility] recommended excision of the pulmonary nodule which [...] meds or nasal sprays. JACKSON MCGEE MD [address] [place] [address], [address], [place] - [facility] 06/15/2024 08:40:18 09/07/2024 text/html ROS as noted in the HPI Going to have lung surgery on the left. Sore throat much better. Had tympanoplasty on the right several years ago PV: 53 year old male presents for evaluation of right ear pain and fullness and follow up of an audiogram that he had at [facility] 04/08/24. Patient reports right earache and fullness for the majority of the summer. He has had issues with right ear infections in the past and he had a tympanoplasty in the right ear in 2014 in [place]. He reports occasional tinnitus in both ears. [...] lung nodule. Dr. Olea thoracic surgeon at [facility] recommended excision of the pulmonary nodule which [...] meds or nasal sprays. JACKSON MCGEE MD [address] [place] [address], [place], [address], [facility] - [facility] 09/12/2024 09:31:28
--- OUTSIDE RECORDS SUMMARY | 2025-09-14 13:47 | XMS_ITS | Clinical Summary ---
Author Organization [facility] Address [address] [place] [address] Phone Care Team Providers Care Lumber Marker Name Role Phone Ricci Everett MD Primary [...] patient's age to complete this topic IPV VACCINES Aged Out No longer eligi ble [...] (12/28/2022 9:56 AM EST) HDL 77 mg/dL [facility] Comment: Interpretation <40 mg/dL: Low HDL cholesterol (major risk factor for CHD) Greater than or equal to 60 mg/dL: High HDL cholesterol ( negative risk factor for CHD) HDL - cholesterol is affected by a number of factors, e.g. smoking, excerise, hormones, sex and age. CHOLESTEROL 203 0 - 240 mg/dL [facility] TRIGLYCERIDES 94 30 - 160 mg/dL [facility] LDL 107 50 - 129 mg/dL [facility] Comment: LDL levels in terms of risk for coronary heart disease: <100 mg/dL: Optimal 100-129 mg/dL: Near or above optimal 130-159 mg/dL: Borderline high 160-189 mg/dL: High >190 mg/dL: Very High CARDIAC RISK RATIO 2.6(L) 3.4 - 5.0 [facility] Blood 12/28/2022 9:56 AM EST 12/28/2022 10:04 AM EST us Ricci Everett MD LAB BLOOD BKR ORDERABLE S Final Result [facility] [address] [place] [address] from Last 3 Months or Most Recently Relevant to Health Maintenance Insurance (Work) [address] (Work) [address] (Work) [address] [place] [address] Care Teams Lumber Marker Relationship Specialty Start Date End Date Ricci Everett MD [address] [place] [address] [place] [address] PCP - General 10/12/21 Additional Source Comments The information contained in this document represents components of the legal health record. It is not the complete legal health record.[facility]
== END 2025-09-14 11:26 | disposition home or self-care (01) ==
LOC: HO.HMCHD 11:05
PROVIDERS: PCP Student in an Organized Health Care Education/Training Program; Visit Provider Student in an Organized Health Care Education/Training Program
DX: I10 Essential (primary) hypertension (principal); E78.49 Other hyperlipidemia; E55.9 Vitamin D deficiency, unspecified; G47.09 Other insomnia